=== PATIENT | female | born 1955 | race Caucasian/White ===

== ENCOUNTER 2017-04-06 13:52 | Inpatient (IN) | payer OTHER ==
[~2017-04-06] VITALS: Ht 175.3 cm; Wt 70.5 kg
[2017-04-06] VITALS (7 sets, daily range): BP systolic 92–112; BP diastolic 38–68; PULSE 81–104; RESP 12–18; O2SAT 95–100
[~2017-04-06 13:52] MED LIST: ADV250INH IH; ADV250INH INH; ALBU18HF IH; ALPRAZOLAM0.5 MG PO; AMIT150T PO; BUSP15 PO; HYDR1TAB69 PO; MONT4TAB9 PO; OMEP40CA25 PO; SIN10 PO; TRAM50TA2 PO
[2017-04-06] MEDS ORDERED: HYDROcodone-APAP 5-325 mg Tablet PO ONE (14:10)
--- NOTE | 2017-04-06 14:14 | ED.REPORT ---
HPI-Extremity Problem Lower Date of Service Apr 06, 2017 ED Provider: Rivera Cunningham PA-C Otherwise healthy 7-year-old female presents with chief complaint right knee pain. Patient reports the pain that began last night as she was trying to get out of bed and fell. She describes the fall as sitting on the edge of the bed, slipping off and landing on her right knee on a hardwood floor. Reports hyperextension of her right hip denies hip pain at this time. Knee pain, swelling and reduced range of motion. Denies numbness, tingling or pain in right foot. Patient has a recent history of back surgery performed February 08 involving placement of plates along her spine, continues to wear brace. Denies exacerbation of back pain, saddle anesthesia, bowel/bladder dysfunction. Nursing Notes Stated Complaint: RT KNEE PAIN Chief Complaint: Extremity Trauma Nursing Notes Reviewed: Yes Allergies: Coded Allergies: Sulfa (Sulfonamide Antibiotics) (Verified Allergy, Unknown, 04/06/17) Scheduled Amitriptyline (Amitriptyline) 50 Mg Tab 150 MG PO HS Buspirone (Buspirone) 10 Mg Tablet 10 MG PO HS Montelukast (Montelukast) 10 Mg Tablet 10 MG PO HS Scheduled PRN Alprazolam (Alprazolam) 0.5 Mg Tablet 1 MG PO QID PRN PRN For Anxiety Baclofen (Baclofen) 10 Mg Tablet 10 MG PO TID PRN PRN For Pain Furosemide (Furosemide) 20 Mg Tab 20 MG PO DAILY PRN PRN prn oxyCODONE-Acetaminophen 10-325 mg (oxyCODONE-Acetaminophen 10-325 mg) 1 Each Tablet 1 TAB PO q4 hours PRN PRN For Pain General Time Seen by MD: 13:57 Chief Complaint Knee injury right Past Medical History Past Medical History Chronic back pain Kidney stones Insomnia Scoliosis Osteoporosis Reports: Asthma, GERD Past Surgical History Back surgery Neck surgery Bladder surgery Smoking History Current Every Day Smoker Social History Alcohol Use: Denies alcohol use Drug Use: Denies drug use Other Social History: Good social support, Occupation Works as a [employer] Ambulatory Status Independent Review of Systems Review of Systems Note: Negative unless stated otherwise in history of present illness Physical Exam General: Well appearing, well developed, well nourished, no acute distress. Reclining on the gurney, wearing an external back brace. Right hip: Nontender Right knee: Diffusely swollen, no redness, bruising. Significantly reduced range of motion. Nontender to palpation along medial lateral joint line, patella, tibial tuberosity, popliteal fossa. Right foot/ankle: Normal to inspection, nontender. DP and PT pulses are not appreciated bilaterally by palpation but confirmed with ultrasound. Head: Atraumatic, normocephalic. Eyes: No scleral icterus or injection. No discharge. Vision grossly intact. ENT: Voice clear, hearing grossly intact. Respiratory: No respiratory distress, no increased work of breathing. Speaks in complete sentences. Skin: Warm and dry. Neurological: Grossly nonfocal. Psychological: alert and oriented. Speech appropriate, linear and logical. Behavior appropriate. Initial Vital Signs Vital Signs (First) Date Time Temp Pulse Resp B/P Pulse Ox O2 Delivery O2 Flow Rate FiO2 04/06/17 14:01 36.5 95 16 92/50 95 Room Air Interpretation & Diagnostics Interpretation & Diagnostics: PROCEDURE: CT KNEE RIGHT W/O CONTRAST ([id number]) INDICATIONS: distal femur fracture on x-ray IMPRESSION: 1. Communited, mildly displaced distal femur fracture with extension into the condyles and intracondylar notch. 2. Prominent effusion and soft tissue edema. Lab Results Interpretation Result Diagram: 04/06/17192704/06/171927 X-Ray Interpretation Xray Interpretation: PROCEDURE: X-RAY RIGHT KNEE, THREE VIEWS ([id number]) INDICATIONS: right knee pain IMPRESSION: Mildly displaced distal femur fracture, extending into the medial condyle. Mild cortical irregularity along the lateral condyle. Fracture canot be excluded. CT knee is recommended for further evaluation. Interpretation / Wet Read by: Interpret - Radiologist, Interp - P Re-Eval/Medical Decision Med Decision/Clinical Course 7-year-old female who recently underwent back surgery presents emergency department for right knee pain began when she fell from her bed onto a hardwood floor. Because of pain, swelling, reduced range of motion. Physical examination reveals notable swelling in the right knee compared to the left, effusion, reduced range of motion. Knee is nontender, without bruising, redness or heat. Hip and ankle are normal-appearing and nontender. DP and PT pulses cannot be appreciated by palpation or compression with Doppler. Treatment is initiated with Wirtz 2, x-ray is performed which indicates a distal femur fracture, radiologist recommended CT which is performed. Discussed the case with Dr. Granda, who requests admission to hospitalist service , long knee immobilizer brace, nothing by mouth after midnight plan for surgery tomorrow. Discussed the case with hospitalist who accepts admission. Patient is transferred to floor in stable condition. Consultation #1: Referral / Consult Name: Jose Granda DO Call Returned at: 17:07 Note: Requests admit, plan for surgery tomorrow a.m. Nothing by mouth after midnight, long knee immobilizer. Consultation #2: Referral / Consult Name: Bob Castanon MD Call Returned at: 17:24 Distillery Manager: Will see patient Discharge & Departure Impression: Primary Impression: Right femoral fracture Encounter type: initial encounter Femur location: distal Fracture type: closed Fracture morphology: unspecified fracture morphology Qualified Code: S72.401A - Unspecified fracture of lower end of right femur, initial encounter for closed fracture Disposition: ADMITTED TO HOSPITAL Referrals: Edgardo Peña (PCP) EDSupervising Provider for APC: Cam Hinkle MD, Seth PA-C Apr 06, 2017 14:14
--- NOTE | 2017-04-06 15:06 | DRSVH ---
PROCEDURE: X-RAY RIGHT KNEE, THREE VIEWS ([id number]) INDICATIONS: right knee pain TECHNIQUE: 3 views of the knee were acquired. COMPARISON: [facility], , KNEE 3VW (RT), 04/18/2013, 11:55. FINDINGS: Bones: There is a mildly displaced distal femur fracture, extending into the medial condyle. There is irregularity along the lateral condyle cortex. Soft tissues: Moderate joint effusion. No suspicious soft tissue calcifications. IMPRESSION: Mildly displaced distal femur fracture, extending into the medial condyle. Mild cortica l irregularity along the lateral condyle. Fracture canot be excluded. CT knee is recommended for fu rther evaluation. Dictated by: Opal Rodgers M.D. on 04/06/2017 at 13:47 Approved by: Opal Rodgers M.D. on 04/06/2017 at 14:05
--- NOTE | 2017-04-06 16:36 | DRSVH ---
PROCEDURE: CT KNEE RIGHT W/O CONTRAST ([id number]) INDICATIONS: distal femur fracture on x-ray TECHNIQUE: Noncontrast 1-1.5 mm axial sections acquired from the mid-patella to the proximal tibia, with coronal and sagittal reformats. COMPARISON: [facility], CT, KNEE RT W/O CONTRAST, 04/18/2013, 13:13. [facility], CR, XR KNEE 3VW RT, 04/06/2017, 14:18. FINDINGS: Image quality: Excellent. Bones: Comminuted, mildly displaced, distal femur fracture with extension into the medial and latera l condyles. Fracture lucency extends into the intracondylar notch. Tibial plateau appears intact. Soft tissues: Prominent effusion is present with soft tissue edema. IMPRESSION: 1. Communited, mildly displaced distal femur fracture with extension into the condyles and intracondy lar notch. 2. Prominent effusion and soft tissue edema. Dictated by: Opal Rodgers M.D. on 04/06/2017 at 15:26 Approved by: Opal Rodgers M.D. on 04/06/2017 at 15:35
[2017-04-06] MEDS ORDERED: Ondansetron 2 mg/mL 2 mL Inj IVPUSH PRN (17:50)
[2017-04-06] MEDS ORDERED: Polyethylene Glycol (PEG) 17 Gm Powder PO PRN (17:50)
[2017-04-06] MEDS ORDERED: Alum-Mag Hydrox-Simeth 30 mL Suspension PO PRN (17:50)
--- NOTE | 2017-04-06 17:57 | PCM.HPMED ---
Subjective Date of Service Apr 06, 2017 Primary Provider: Admitting Physician: Primary Care Physician: Soto Lemus DO Attending Physician: Admit Status: From the Emergency Department, Full Admit, Admit to Red Team Chief Complaint: fell from bed/20hrs Right knee pain and swelling/20hrs History of Present Illness: 61 -year-old lady with past medical history of COPD, depression/anxiety, recent extensive back surgery for scoliosis on February 08 and February [facility] presented with fall from bed and right knee pain and swelling of 20 hours. She she states she woke up to go to bathroom and fell from bed. She describes fall as mechanical due to combination of spine brace she is wearing after surgery, new Tempur-Pedic bed and new slippery bed sheets. She landed on her right knee. She has significant swelling and pain on right knee. No trauma to other sites except mild bruise right wrist She has history of COPD. She used to be on Advair but few years she had PFT and was told that she has only mild COPD and dyspnea is mainly due to postmenopausal anxiety and stopped using Advair. Continues to use Singulair. No recent exacerbation Denies chest pain. Denies dyspnea. Denies fever ED course: CT knee showed Communited, mildly displaced distal femur fracture with extension into the condyles and intracondylar notch Dr Granda from orthopedics consulted by ED, plans to take her to OR tomorrow Review of Systems: a comprehensive review of systems performed, pertinent positives and negatives included in history of present illness Allergies Coded Allergies: Sulfa (Sulfonamide Antibiotics) (Verified Allergy, Unknown, 10/04/14) Home Medications Alprazolam-Expunged Drug, Do Not Renew! (Alprazolam-Expunged Drug, Do Not Renew! ) 0.5 Mg Tablet 0.5 MG PO TIDP For anxiety Amitriptyline-Expunged Drug, Do Not Renew! (Amitriptyline-Expunged Drug, Do Not Renew!) 150 Mg Tablet 100 MG PO HS Buspirone-Expunged Drug, Do Not Renew! (Buspirone-Expunged Drug, Do Not Renew!) 15 Mg Tablet 10 MG PO BID Montelukast Chew (Singulair Chew) 4 Mg Tab.chew 0 PO HS Montelukast-Expunged Drug, Do Not Renew! (Singulair-Expunged Drug, Do Not Renew! ) 10 Mg Tablet 10 MG PO DAILY PMH Chronic back pain due to scoliosis. Kidney stones Insomnia Scoliosis Osteoporosis Reports: Asthma, GERD Surgical History Recent extensive spine surgery reportedly cervical to sacral Back surgery Neck surgery Bladder surgery Family History Reviewed and unremarkable. Social History Hx Alcohol Use: No Hx Substance Use: No Hx Tobacco Use: Yes Smoking Status: Current Every Day Smoker Exam Vital Signs Vital Sign - Last Date Time Temp Pulse Resp B/P Pulse Ox O2 Delivery O2 Flow Rate FiO2 04/06/17 16:56 81 12 97/38 100 Room Air 04/06/17 14:01 36.5 Exam Gen. patient is lying comfortably in hospital bed HEENT: Head is normocephalic atraumatic, Pupils equal and reactive, extraocular movements intact, Lungs clear to auscultation bilaterally Heart regular rate and rhythm without murmurs gallops or rubs Abdomen soft nontender without hepatosplenomegaly Extremities pulses are present dorsalis pedis posterior tibialis and radial. tSkin is warm and dry there are no rashes, Psych alert and oriented to person place and time Neuro cranial nerves II through XII are grossly intact Lymph: There is no lymphadenopathy appreciated in the cervical supra infraclavicular regions : no cordero Lab and Diagnostics X-Rays, CTs and MRIs PROCEDURE: CT KNEE RIGHT W/O CONTRAST ([id number]) INDICATIONS: distal femur fracture on x-ray TECHNIQUE: Noncontrast 1-1.5 mm axial sections acquired from the mid-patella to the proximal tibia, with coronal and sagittal reformats. COMPARISON: [facility], CT, KNEE RT W/O CONTRAST, 04/18/2013, 13: 13. [facility], CR, XR KNEE 3VW RT, 04/06/2017, 14:18. FINDINGS: Image quality: Excellent. Bones: Comminuted, mildly displaced, distal femur fracture with extension into the medial and lateral condyles. Fracture lucency extends into the intracondylar notch. Tibial plateau appears intact. Soft tissues: Prominent effusion is present with soft tissue edema. IMPRESSION: 1. Communited, mildly displaced distal femur fracture with extension into the condyles and intracondylar notch. 2. Prominent effusion and soft tissue edema. Dictated by: Opal Rodgers M.D. on 04/06/2017 at 15:26 Assessment & Plan 61 -year-old lady with past medical history of COPD, depression/anxiety, recent extensive back surgery for scoliosis on February 08 and February 17 at [facility] presented with fall from bed and right knee pain and swelling of 20 hours. # Right distal femoral fracture, acute,poa -Pain control with morphine -Orthopedics consulted by ED -cxr and ekg requested -CBC CMP requested -npo pmn # Recent extensive back surgery for scoliosis -keep spine brace -Pain control as above - to notify orthopedic surgeon in [place],patient was supposed to see him today # History of COPD -No more on Advair -duoneb prn #Anxiety/depression -Continue home medication full code Patient admitted under inpatient status with expected length of stay > 2 midnights for severity of present symptoms, complexities of treatment plan and risk for adverse events copies to: Soto Lemus Melaku MD Apr 06, 2017 17:57
--- NOTE | 2017-04-06 18:52 | DRSVH ---
PROCEDURE: X-RAY CHEST ONE VIEW, PORTABLE ([id number]) INDICATIONS: preop TECHNIQUE: One view of the chest was acquired. COMPARISON: None. FINDINGS: Surgical changes and devices: Previous extensive surgery in the lower thoracic and upper lumbar spine . Previous surgery for anterior approach in the lower cervical spine. Lungs and pleura: No pleural effusions or pneumothorax. Lungs are clear of acute disease. However t here is some ill-defined density in the apex of the heart and left costophrenic sulcus is a new findi ng since the most recent previous films of 2013. There is irregularity of ribs in the area consistent with old rib fracture.. Mediastinum: Mediastinal contours appear normal. Heart size is normal. Bones and chest wall: No suspicious bony lesions. Overlying soft tissues appear unremarkable. IMPRESSION: Acute disease is not thought to be present. There is abnormal somewhat nodular pleural-ba sed density at the left costophrenic sulcus of unknown significance. This is new since the 2013. Inte rvening but older chest films would be useful. Followup is suggested. Dictated by: Arash Pinto M.D. on 04/06/2017 at 18:48 Approved by: Arash Pinto M.D. on 04/06/2017 at 18:51
[2017-04-06 19:34] LABS: MONOCYTES % (AUTO) 7.6 % (4-12)
[2017-04-06 19:36] LABS: BASOPHILS % (AUTO) 0.3 % (0-3); EOSINOPHILS % (AUTO) 2.3 % (0-5); Mean Corpuscular Hemoglobin 26.9 pg (27.0-35.0); Mean Corpuscular Volume 87.3 fL (81-100); NEUTROPHILS % (AUTO) 77.4 % (40-74); Platelet Count 307 bil/L (150-400)
[2017-04-06] MEDS ORDERED: BACL10TA PO (19:49)
[2017-04-06] MEDS ORDERED: BUSP10TA2 PO (19:49)
[2017-04-06] MEDS ORDERED: OXYC-466 PO (19:49)
[2017-04-06] MEDS ORDERED: MONT10TA23 PO (19:49)
[2017-04-06] MEDS ORDERED: AMT50T PO (19:49)
[2017-04-06] MEDS ORDERED: FUR20 PO (19:49)
[2017-04-06] MEDS ORDERED: ALPR0.5T8 PO (19:49)
[2017-04-06 19:52] LABS: INR 0.9 ratio
[2017-04-06 19:56] LABS: Magnesium 2.2 mg/dL (1.6-2.6)
--- NOTE | 2017-04-06 20:08 | CONS ---
[address] [address] CONSULTATION REPORT PATIENT: GURWINDER JEAN-BAPTISTE : 1955 MR#: [id number] ADMIT: 04/06/2017 JOB ID: [id number] DATE OF SERVICE: 04/06/2017 CHIEF COMPLAINT: Right thigh pain. HISTORY OF PRESENT ILLNESS: The patient is a 61-year-old female who has been recovering from spine surgery and fell out of her bed early this morning when trying to get up to use the restroom, sustaining a hyperflexion- type injury to her right femur. She was unable to ambulate after the injury and tried to ice this at home but had worsening pain and swelling and was brought into the emergency department by ambulance. She has had severe acute pain in the right knee and pain with any attempt at range of motion. She had spine surgery in [place] which was a staged type procedure beginning on February 08, and then had a second procedure and was doing well from the surgeries, although she states that she does have some diminished sensation to her left knee postop but otherwise has been progressing quite well and has had no problems with her wounds. She has been using a brace for support when ambulating but has not been using a walker or cane. PAST MEDICAL HISTORY: Significant for none stated other than nicotine use and osteoporosis. PAST SURGICAL HISTORY: Includes back surgery, 2009, with Dr. Rodriguez, and then 2010 breast augmentation, bladder surgery in the , and then the recent back surgery. ALLERGIES: PENICILLIN. REVIEW OF SYSTEMS: The patient denies any chest pain, shortness of breath, nausea, vomiting, problems with liver, lung, kidneys. Is positive as above. Denies fevers, chills or other constitutional symptoms. PHYSICAL EXAMINATION: Vital signs: Blood pressure 97/38, pulse rate 81, respirations 12, temperature 36.5. She is alert and cooperative in no acute distress. Her right knee has pain and swelling and pain with any attempt at range of motion. Large effusion present. Her skin overlying the knee is intact. Her right bilateral lower extremities have some mild edema present. She is able to move her toes. Her foot is warm, pink, and well perfused with dorsalis pedis pulse +2. X-rays demonstrate a right distal femur fracture with intercondylar split and significant osteoporosis. ASSESSMENT: Right distal femur fracture with intercondylar extension. PLAN: We discussed treatment options for this and I recommend open reduction and internal fixation for her fracture. Will plan for surgery tomorrow. We discussed the risks, benefits, and possible complications of surgery. All questions were answered. We also discussed nonoperative treatment, although I would not recommend this due to the risk of malunion, nonunion, and worsening arthritis. The patient had good understanding. We will plan for surgery tomorrow. Plan to keep her n.p.o. after midnight and recommend Omalley catheter placement and a knee immobilizer.
[2017-04-06] MEDS: 0.9% Sodium Chloride 1,000 ML IV SCH (23:27)
[2017-04-07] VITALS (13 sets, daily range): BP systolic 103–124; BP diastolic 50–73; PULSE 85–116; RESP 14–19; O2SAT 92–100
[2017-04-07] MEDS ORDERED: HYDROmorphone 0.5 mg/0.5 mL iSecure Syringe IVPUSH ONE (01:30)
[2017-04-07 03:45] LABS: APPEARANCE,URINE CLEAR (CLEAR,HAZY); COLOR,URINE YELLOW (YELLOW); OCCULT BLOOD,URINE SMALL (NEGATIVE); UROBILINOGEN,URINE NORMAL (NORMAL)
--- NOTE | 2017-04-07 05:41 | NUR ---
Admit Pt arrived to unit from ED at 2004 via stretcher. Took three staff to transfer pt to bed. Alert, oriented and able to make needs known. Denies nausea, vomiting and no acute resp distress and/or SOB noted or reported. Omalley catheter inserted per MD's order and pt tolerating it well. Omalley catheter is patent and draining yellow urine. c/o RLE pain and morphine 2mg IV administered with some relief. two hours later c/o increased in pain. this health technical writer Gino funk MD for new order of breakthrough pain med and Dilaudid 0.5mg IV administered x1 with good relief and pt slept for few hours. Pt woke up with intolerable amount of pain and Morphine 4mg IV administered. Pt is resting comfortably in bed and call light w/in reach. Will continue to monitor.
[2017-04-07] MEDS: 0.9% Sodium Chloride 1,000 ML IV SCH ×2 (07:10→16:50)
[2017-04-07 09:47] LABS: Mean Corpuscular Hemoglobin 27.2 pg (27.0-35.0); Mean Corpuscular Volume 87.8 fL (81-100)
[2017-04-07] MEDS ORDERED: CeFAZolin 2 Gm/50 mL D5W Duplex Bag IV ONE (10:40)
--- NOTE | 2017-04-07 10:45 | NUR ---
ORTHO/PROVIDER NOTIFICATION Patient stated that she feels that her leg is numb. + pulse. Patient is able to feel her foot when this song writer was touching it. No excruciating pain noted. HX: Recent back surgery. Susana Blandon, PAC made aware. Will continue to monitor. Patient is scheduled for surgery this afternoon.
--- NOTE | 2017-04-07 11:24 | PCM.PNMED ---
Subjective Date of Service Apr 07, 2017 Subjective pt was bit anxious and talked about the episode in details. still in pain, increased morphine to q2h awaiting surgery per today Exam Vital Signs Vital Sign - Last Date Time Temp Pulse Resp B/P Pulse Ox O2 Delivery O2 Flow Rate FiO2 04/07/17 05:44 37.1 116 18 124/69 96 Room Air Intake and Output 04/06/17 04/06/17 04/07/17 Cumulative From/Thru 15:00 23:00 07:00 04/06/17 14:01 - 04/07/17 05:44 Intake Total 400 ml 400 ml Output Total 3000 ml 3000 ml Balance -2600 ml -2600 ml Intake Oral 400 ml 400 ml Output Urine Total 3000 ml 3000 ml # Bowel Movements 0 0 Exam Cachectic middle-aged female NAD, comfortably laying down on the bed no JVD, MMM, no LAD RRR, nl s1, s2 no mrg CTAB, no w,c S,ND,NT,normoactive BS+ Rt distal DP2+, warm, no edema IVs and Medications Medications Reviewed: Medications were reviewed in detail Lab and Diagnostics Result Diagram: 04/06/17192704/06/171927 X-Rays, CTs and MRIs PROCEDURE: CT KNEE RIGHT W/O CONTRAST ([id number]) INDICATIONS: distal femur fracture on x-ray TECHNIQUE: Noncontrast 1-1.5 mm axial sections acquired from the mid-patella to the proximal tibia, with coronal and sagittal reformats. COMPARISON: [facility], CT, KNEE RT W/O CONTRAST, 04/18/2013, 13: 13. [facility], CR, XR KNEE 3VW RT, 04/06/2017, 14:18. FINDINGS: Image quality: Excellent. Bones: Comminuted, mildly displaced, distal femur fracture with extension into the medial and lateral condyles. Fracture lucency extends into the intracondylar notch. Tibial plateau appears intact. Soft tissues: Prominent effusion is present with soft tissue edema. IMPRESSION: 1. Communited, mildly displaced distal femur fracture with extension into the condyles and intracondylar notch. 2. Prominent effusion and soft tissue edema. Dictated by: Opal Rodgers M.D. on 04/06/2017 at 15:26 Assessment & Plan 61 -year-old lady with past medical history of COPD, depression/anxiety, recent extensive back surgery for scoliosis on February 08 and February 17 at [facility] presented with fall from bed and right knee pain and swelling of 20 hours. acute, active # Right distal femoral fracture, acute,poa -Pain control with morphine, increased frequency today given uncontrolled pain -appreciate Orthopedics , plans for surgery today -pain control, dvt ppx per surgery team chronic, stable # Recent extensive back surgery for scoliosis -keep spine brace -Pain control as above - to notify orthopedic surgeon in [place],patient needs to reschedule appointment with neurosurgeon on d/c # History of COPD -No more on Advair -duoneb prn #Anxiety/depression -Continue home medication Full code dispo: depends on surgical course VTE Mechanical Devices: Intermittant Pneumatic CD Time spent 35min Willy Rolle MD Apr 07, 2017 08:41
[2017-04-07] MEDS ORDERED: fentaNYL-PF 50 mCg/mL 2 mL Inj ONE (11:45)
[2017-04-07] MEDS ORDERED: Propofol 10,000 mCg/mL 20 mL Inj ONE (11:45)
[2017-04-07] MEDS ORDERED: Rocuronium 10 mg/mL 5 mL Inj ONE (11:45)
[2017-04-07] MEDS ORDERED: HYDROmorphone 1 mg/mL Inj ONE (11:45)
[2017-04-07] MEDS: ALPRAZolam 0.5 mg Tablet PO PRN ×2 (12:25→22:37)
[2017-04-07] MEDS ORDERED: Tranexamic Acid Inj 1,000 MG in 0.9% Sodium Chloride 100 ML IV SCH (12:30)
[2017-04-07] MEDS ORDERED: Tranexamic Acid Inj 1,000 MG in 0.9% Sodium Chloride 100 ML IV ONE (12:30)
[2017-04-07] MEDS ORDERED: CeFAZolin Inj 2 GM in IV Premix 1 EACH IV ONE (12:30)
[2017-04-07] MEDS ORDERED: Lactated Ringer's 1,000 ML IV ONE ×2 (12:38→13:25)
--- NOTE | 2017-04-07 12:39 | PCM.HPANE ---
Patient Data Surgeon Admitting Provider:Bob Castanon MD Attending Provider:Willy Rolle MD Primary Care Physician:Soto Lemus DO Other Provider: Reason for Visit Right Distal Femur Fracture RIGHT DISTAL FEMUR FRACTURE Ht/WT & BMI Height (Feet): 5 Height (Inches): 9.00 Weight (Kilograms): 74.200 Body Mass Index 24.23 Allergies Coded Allergies: Sulfa (Sulfonamide Antibiotics) (Verified Allergy, Unknown, 04/06/17) Past Anesthesia History Anesthesia History: Denies:: Abnormal Airway, Anesthesia Reactions, Difficult Intubation, Fam Anesthesia Reaction, Fam Malignant Hypertherm, Malignant Hyperthermia Diabetes History Hx Diabetes?: No MRSA MRSA: No Medications Reported Medications Montelukast 10 Mg [id number] Mg PO HS #30 04/06/17 Buspirone 10 Mg Oxetzb76 Mg PO HS #60 04/06/17 Baclofen 10 Mg Qcqsxx04 Mg PO TID PRN For Pain #90 04/06/17 Amitriptyline 50 Mg Yxu778 Mg PO HS #90 04/06/17 oxyCODONE-Acetaminophen 10-325 mg 1 Each Tablet1 Tab PO q4 hours PRN For Pain # 90 04/06/17 Furosemide 20 Mg Tab20 Mg PO DAILY PRN prn #30 04/06/17 Alprazolam 0.5 Mg Tablet1 Mg PO QID PRN For Anxiety #56 04/06/17 Discontinued Reported Medications Tramadol 50 Mg Jgchhk96 Mg PO 000 PRN For Pain Ref 0 10/04/14 Montelukast Chew (Singulair Chew)4 Mg Tab.chew PO HS 30 Days Ref 0 10/04/14 Flutic/Salmet-Expunged Drug, Do Not Renew! (Advair 250/50-Expunged Drug, Do Not Renew!)60 Puff Disk1 Puff INH BID #1 DISK 04/28/13 Hydrocod/APAP-Expunged, Do Not Renew! (VICODIN-Expunged Drug, Do Not Renew)1 Tab Tab1 Tab PO 04/28/13 Omeprazole-Expunged Drug, Do Not Renew! 40 Mg Capsule.dr40 Mg PO AC 02/07/13 Alprazolam-Expunged Drug, Do Not Renew! 0.5 Mg Tablet0.5 Mg PO TIDP For anxiety 02/07/13 Montelukast-Expunged Drug, Do Not Renew! (Singulair-Expunged Drug, Do Not Renew! )10 Mg Ljljiy77 Mg PO DAILY 04/10/12 Buspirone-Expunged Drug, Do Not Renew! 15 Mg Qezoag00 Mg PO BID 04/10/12 Amitriptyline-Expunged Drug, Do Not Renew! 150 Mg Qqwopx807 Mg PO HS 03/15/11 Flutic/Salmet-Expunged Drug, Do Not Renew! (Advair 500/50-Expunged Drug, Do Not Renew!)60 Puff Disk1 Puff IH BID 03/15/11 Albuterol-Expunged Drug, Do Not Renew! 200 Puff/18 Gm Hfa.aer.ad2 Puff IH Q3 03/15/11 History History of ENT Problems?: No HEENT History: Denies:: Cataracts Dysphagia Glaucoma Sinus Problem Denture Type: None Teeth Condition: Within Normal Limits Tooth Decay Hx of Heart Problems?: No Cardiovascular History: Positive for:: Edema (a trace of edema on RLE) Denies:: Cardiac Surgery Chest Pain Congestive Heart Failure Hypertension Hx of Respiratory Problem?: Yes Respiratory History: Positive for:: Asthma COPD Cough (RECENT RIB FX) Denies:: Dyspnea Tuberculosis Hx Neurologic Problems?: Yes Neurological History: Positive for:: Headaches Hx of GI Problems?: Yes Hx of Problems?: Yes Female Hx: Positive for:: Problems with Breasts? (S/P BILAT BREAST AUGMENTATION) Denies:: Currently Skin History: Denies:: History Skin Disorders? Pressure Ulcers Hx Musculoskeletal Problems?: Yes Musculoskeletal History: Positive for:: Back Injury (Cyst in lower back, removed 2009) Musculoskeletal Trauma (RECENT RIB FX S/P FOOT RPR X2) Hx of Psycho/Social Problems?: Yes Psycho Social History: Positive for:: Anxiety (?R/T BACK/NECK PAIN) Hx Depression Hx Surgeries?: Yes (BILAT BREAST AUGMENTATION,L5-S1 LAMI W/ CYST EXC.,FOOR RPR X2,CYSTO) Hx Any Other Health Problems?: Yes Other History: Positive for:: Hospitalization Denies:: Cancer Endocrine Disease Thyroid Disease History Blood Transfusions: Positive for:: Accept Blood Products? Denies:: Blood Transfuse Reaction Blood Transfusions Hx Diabetes: No Hx Alcohol Use: NoHx Substance Use: No Smoking Status: Current Every Day Smoker Have You Smoked inLast 12 mo: YesApprox How Many Cigarettes/day: used to smoke a pack a day Stop/Bang Treated for Sleep Apnea?: No S-Snoring: Do You Snore Loudly: No G- Gender Male: No Risk Assessment Category Category 1A: Patient has history of documented sleep apnea, and HAS NOT received any narcotic, sedative or anesthesia administration during this stay. Category 1B: Patient has history of documented sleep apnea, and HAS received any narcotic , sedative or anesthesia administration during this stay Category 2: Patient has SUSPECTED Obstructive Sleep Apnea, and HAS received any narcotic , sedative or anesthesia administration during this stay. Category 3: Patient has SUSPECTED Obstructive Sleep Apnea and HAS NOT received narcotic, sedative or anesthesia administration during this stay. Category 4: Outpatient in Procedural Areas with known sleep apnea or who screen positive for High Risk via the STOP/BANG questionnaire. Exam Exam Vital Signs Vital Signs Date Time Temp Pulse Resp B/P Pulse Ox O2 Delivery O2 Flow Rate FiO2 04/07/17 09:22 106 04/07/17 08:14 37.0 106 16 108/68 98 Room Air 04/07/17 05:44 37.1 116 18 124/69 96 Room Air General Appearance: Alert, Oriented X3, Cooperative, Severe Distress HEENT/AIRWAY: MP 2, Neck Movement (from), Mouth Opening (wnl - poor dentition) Lungs: Clear to Auscultation Heart: Exam Unremarkable Additional Information smells of cigarettes Meds/Labs/Diagnostics Admission Meds Current Medications Acetaminophen/ Hydrocodone Bitart 2 tablet 2 tablet ONCE ONCE PO Last administered on 04/06/17 14:32; Start 04/06/17 at 14:10; Stop 04/06/17 at 14:11; Status DC Sodium Chloride (Normal Saline) 1,000 ml @ 75 mls/hr [id number] IV Last administered on 04/06/17 23:27; Start 04/06/17 at 17:50 Nicotine (Nicoderm 14 mg/ 24 Hr Patch) 1 patch DAILY TOPICAL Last administered on 04/07/17 02:06; Start 04/07/17 at 01:30 Hydromorphone HCl (Dilaudid Inj) 0.5 mg ONCE ONCE IVPUSH Last administered on 04/07/17 02:07; Start 04/07/17 at 01:30; Stop 04/07/17 at 01:33; Status DC Labs Test 04/06/17 19:28 04/07/17 03:25 04/07/17 09:32 Neutrophils (%) (Auto) 77.4% (40-74) Lymphocytes (%) (Auto) 12.1% (14-46) Monocytes (%) (Auto) 7.6% (4-12) Eosinophils (%) (Auto) 2.3% (0-5) Basophils (%) (Auto) 0.3% (0-3) Prothrombin Time 9.6sec (8.1-12.5) Prothromb Time International Ratio 0.90ratio Sodium Level 134mEq/L (134-144) Potassium Level 4.2mEq/L (3.5-5.2) Chloride Level 98mEq/L (97-108) Carbon Dioxide Level 22mmol/L (18-29) Blood Urea Nitrogen 22mg/dL (8-27) Creatinine 0.43mg/dL (0.57-1.00) Estimat Glomerular Filtration Rate 215mL/min (>59) Glucose Level 93mg/dL (60-99) Calcium Level 9.2mg/dL (8.5-10.1) Magnesium Level 2.2mg/dL (1.6-2.6) Total Bilirubin 0.2mg/dL (0.0-1.2) Aspartate Amino Transf (AST/SGOT) 18U/L (0-50) Alanine Aminotransferase (ALT/SGPT) 11U/L (0-32) Alkaline Phosphatase 136U/L (25-165) Total Protein 7.2g/dL (6.4-8.4) Albumin 3.8g/dL (3.4-5.0) Hold Moreno Top Tube Received (Received) Urine Color Yellow (YELLOW) Urine Appearance Clear (CLEAR,HAZY) Urine pH 6.0 (5.0-8.0) Urine Specific Benavides 1.025 (1.003-1.035) Urine Protein Negativemg/dL (NEG,TRACE) Urine Glucose (UA) Negativemg/dL (NEGATIVE) Urine Ketones Negativemg/dL (NEGATIVE) Urine Occult Blood Small (NEGATIVE) Urine Nitrite Negative (NEGATIVE) Urine Bilirubin Negative (NEGATIVE) Urine Urobilinogen Normalmg/dL (NORMAL) Urine Leukocyte Esterase Negative (NEGATIVE) Urine RBC 0-2/hpf (0-2) Urine WBC 6-10/hpf (0-5) Urine Epithelial Cells Occasional/hpf (NONE-MOD) Urine Crystals None seen (NONE SEEN) Urine Bacteria Few/hpf (NONE-FEW) Urine Hyaline Casts None/lpf (NONE) Urine Granular Casts None seen (NONE SEEN) Urine Waxy Casts None seen (NONE SEEN) Urine Red Blood Cell Casts None seen (NONE SEEN) Urine White Blood Cell Casts None seen (NONE SEEN) Urine Mucus None seen (None Seen) Urine Trichomonas None seen (NONE SEEN) Urine Yeast None (NONE SEEN) Urinalysis Comment None Urine Culture Reflexed Indicated White Blood Count 11.0th/mm3 (3.8-10.1) Red Blood Count 2.87mil/mm3 (3.90-5.20) Hemoglobin 7.8g/dL (12.0-15.6) Hematocrit 25.2% (35.0-46.0) Mean Corpuscular Volume 87.8fL (81-100) Mean Corpuscular Hemoglobin 27.2pg (27.0-35.0) Mean Corpuscular Hemoglobin Concent 31.0% (32.0-37.0) Red Cell Distribution Width 14.3% (12.3-15.4) Platelet Count 404bil/L (150-400) Plan Impression Patient chart reviewed, patient interviewed and anesthestic plan with risks, benefits, and alternatives discussed, and informed consent obtained. ASA Physical Status: ASA2 Mod Systemic Disease Anesthetic Plan: GA Bene/Risks/Altern/Consents: Yes HP Complete Prior to Induction: Yes Other underwent two stage back surgery 2 months ago at [facility] which inlcluded defating a lung to achieve access to thoracic spine. Charlie Santamaria MD Apr 07, 2017 12:39
--- NOTE | 2017-04-07 12:56 | NUR ---
TO OR Patient is saline locked. Consent form has been signed. Patient transported to the OR via a hospital bed. Her is aware. Report given to MANJIT Tay.
--- NOTE | 2017-04-07 13:12 | NUR ---
off the floor to OR Addendum: 04/07/17 at 1312 by KAMRAN ELMORE CNA Amended: Links added.
[2017-04-07] MEDS ORDERED: Lactated Ringer's 500 ML IV PRN (13:23)
[2017-04-07] MEDS ORDERED: Lactated Ringer's 1,000 ML IV SCH (13:23)
[2017-04-07] MEDS ORDERED: Phenylephrine 10,000 mCg/mL Inj IVPUSH PRN (13:25)
[2017-04-07] MEDS ORDERED: Atropine 0.4 mg/mL Inj IVPUSH PRN (13:25)
[2017-04-07] MEDS ORDERED: Ondansetron 2 mg/mL 2 mL Inj IVPUSH PRN ×2 (13:25→16:00)
[2017-04-07] MEDS ORDERED: Dexamethasone 4 mg/mL Inj IVPUSH PRN (13:25)
[2017-04-07] MEDS ORDERED: Albuterol-Ipratropium 3 mL Inhalation Solution NEB PRN (13:25)
[2017-04-07] MEDS ORDERED: hydrALAZINE 20 mg/mL Inj IVPUSH PRN (13:25)
[2017-04-07] MEDS ORDERED: EPHEDrine Sulfate 50 mg/mL Inj IVPUSH PRN (13:25)
[2017-04-07] MEDS ORDERED: Labetalol 5 mg/mL 4 mL Inj IV PRN (13:25)
[2017-04-07] MEDS ORDERED: HYDROmorphone 1 mg/mL Inj IVPUSH PRN (13:25)
--- NOTE | 2017-04-07 14:59 | NUR ---
Social Work- Brief Note/Multidisciplinary Rounds Data: EMR reviewed. Pt is a 61 year old female admitted for right distal femur fracture per H&P. Pt's insurance is [employer] of [facility] and PCP is Soto Lemus DO. Pt discussed in multidisciplinary rounds, pt will go to OR today. SW attempted to see pt today to complete assessment but pt was already in the OR at that time. Per chart review, pt has history of depression/anxiety, recent extensive back surgery for scoliosis in January at [facility], and presented with fall from bed and right knee pain and swelling. PT will evaluate pt pending surgery. Pt has no DPOA on file, SW to follow up regarding this. No SW orders have been placed at this time. SW will follow for SNF needs at discharge pending MD order and PT evaluation. Assessment: Pt who is independent at baseline but recently had back surgery Plan: Evolving. Pt recently had back surgery and may require SNF at d/c. SW will continue to follow. JOVITA Cabrera
[2017-04-07] MEDS ORDERED: Ropivacaine-PF 0.5% 30 mL Inj INFILTRATE ONE (15:21)
[2017-04-07] MEDS: fentaNYL-PF 50 mCg/mL 2 mL Inj IVPUSH PRN ×2 (15:51→16:05)
[2017-04-07] MEDS ORDERED: diphenhydrAMINE 25 mg Capsule PO PRN (16:00)
[2017-04-07] MEDS: Sodium Chloride LOK Flush 10 mL Syringe IV SCH (16:50)
--- NOTE | 2017-04-07 16:51 | NUR ---
POST-OP Patient received from PACU via a hospital bed. On O2 at 2 LPM via NC. Placed on a continuous PO2. IVF restarted. Via FELDT scale patients pain level is 2/10. Denies nausea/SOB. Orthos WNL. Dressing on her RLE is CDI. Brace is in place. IFC intact and draining to yellow colored UO. Oriented to room and call light.
--- NOTE | 2017-04-07 17:30 | OP ---
[address] [address] OPERATIVE REPORT PATIENT: GURWINDER JEAN-BAPTISTE : 1955 MR#: [id number] ADMIT: 04/06/2017 JOB ID: [id number] DATE OF SURGERY: 04/07/2017 PREOPERATIVE DIAGNOSIS(ES): Right distal femur fracture. POSTOPERATIVE DIAGNOSIS(ES): Right distal femur fracture. PROCEDURE: Right distal femur open reduction and internal fixation. SURGEON: Jose Granda DO SUGAR BOILER: Bertha Wilkerson PA-C INDICATIONS: The patient is a 61-year-old female who slipped out of bed and fell, sustaining a comminuted intra-articular right distal femur fracture with intercondylar split. We discussed treatment options for this and I recommended open reduction and internal fixation with a plate. We discussed the risks, benefits, and possible complications of surgery. All questions were answered. She wished to proceed. A surgical nurse practitioner was required for the successful completion of this procedure. PROCEDURE IN DETAIL: The patient was brought to the operating room. She was given a preoperative antibiotic, 1 g TXA, and general anesthetic. The right lower extremity was sterilely prepped and draped. A tourniquet was used for hemostasis. I used a sterile tourniquet. An incision was made over the anterior 1/3 of the distal femur, curving along to the tibial tubercle. Dissection was carefully carried through the subcutaneous tissue. Electrocautery was used for hemostasis. The iliotibial band was incised in line with the skin incision and carefully reflected off of the underlying capsule. The joint capsule was then entered and the femur fracture was encountered, with a fracture hematoma. She was noted to have some arthritic changes in her knee and some comminution, but her distal femur fracture reduced quite nicely with traction and a bump under the knee. This was reduced by the assistant manager airside operations and then I placed an eight-hole Synthes distal femur locking plate and slid this up percutaneously along the femoral shaft, reduced the fracture distally, and secured it with a couple of pins. I checked the reduction and plate placement with image fluoroscopy and then placed a nonlocking screw through the center portion of the plate in order to secure it down to bone and then added a proximal nonlocking screw into the shaft. We then added multiple distal locking screws into the femur and multiple locking screws into the shaft in order to get secure fixation of this fracture. She was noted to have quite osteoporotic bone and therefore I elected to use multiple locking screws. The wound was then irrigated and closed with 0 Vicryl to repair the iliotibial band and 2-0 to close the subcu. The skin was closed with niko. Naropin was added as an adjunct local anesthetic. Sterile dressings were applied. The patient tolerated the procedure well. BLOOD LOSS: Was 100 mL POSTOPERATIVE PROTOCOL: Will have the patient remain nonweightbearing on the right lower extremity for a period of six weeks, and 12 weeks likely. Will use a hinged knee brace locked in full extension for the 1st six weeks, and assuming she shows some good signs of healing we can begin range of motion at that point. Will plan for Lovenox for DVT prophylaxis for 21 days postoperatively. She is at increased risk for blood clots as she is a smoker. Plan to use Percocet and Dilaudid for postop pain control.
[2017-04-07] MEDS: hydrOXYzine Pamoate 25 mg Capsule PO PRN (18:36)
[2017-04-07] MEDS: Senna-Docusate 8.6-50 mg Tablet PO SCH (21:04)
[2017-04-07] MEDS: HYDROmorphone 0.5 mg/0.5 mL iSecure Syringe IVPUSH PRN (21:05)
[2017-04-07] MEDS: BusPIRone 15 mg Dividose Tablet PO SCH (21:07)
[2017-04-07] MEDS: CeFAZolin Inj 2 GM in IV Premix 1 EACH IV SCH (21:08)
[2017-04-07] MEDS: oxyCODONE-Acetamin 5-325 mg Tablet PO PRN (22:37)
[2017-04-08] VITALS (9 sets, daily range): BP systolic 83–106; BP diastolic 51–65; PULSE 100–111; RESP 16–18; O2SAT 96–100
[2017-04-08] MEDS: Sodium Chloride LOK Flush 10 mL Syringe IV SCH ×3 (00:17→16:16)
[2017-04-08] MEDS: 0.9% Sodium Chloride 1,000 ML IV SCH ×3 (02:47→21:59)
--- NOTE | 2017-04-08 05:04 | NUR ---
Pain Pt is alert, oriented, mildly sedated and easily aroused. Denies N/V/D. No SOB. pain on RLE managed with toradol, percocet, Oxycodone and also Xanax administered x1 per pt's request. Slept in between pain meds administration. No restlessness noted. Refused to be reposition in bed. Immobilized brace on RLE in place. Denies numbness or tingling on RLE. Orth WNL. Pt is sleeping soundly at this current moment with 2l oxygen via nc at 97%. Continuous PO2 in place. Will continue to monitor.
[2017-04-08] MEDS: CeFAZolin Inj 2 GM in IV Premix 1 EACH IV SCH (05:24)
[2017-04-08] MEDS: oxyCODONE-Acetamin 5-325 mg Tablet PO PRN (06:01)
[2017-04-08] MEDS: hydrOXYzine Pamoate 25 mg Capsule PO PRN ×5 (06:26→21:42)
[2017-04-08 06:31] LABS: BASOPHILS % (AUTO) 0.2 % (0-3); EOSINOPHILS % (AUTO) 0.4 % (0-5); MONOCYTES % (AUTO) 11.9 % (4-12); Mean Corpuscular Hemoglobin 26.9 pg (27.0-35.0); Mean Corpuscular Volume 88.7 fL (81-100); Platelet Count 289 bil/L (150-400)
--- NOTE | 2017-04-08 06:39 | NUR ---
Repositioning Pt allowed NAC to repositioned her couple times this shift.
--- NOTE | 2017-04-08 07:43 | PCM.ANEP1 ---
Post Anesthesia PACU Phase 1 Assessment Vital Signs Vital Signs Date Time Temp Pulse Resp B/P Pulse Ox O2 Delivery O2 Flow Rate FiO2 04/08/17 05:19 36.6 100 18 106/65 100 Nasal Cannula 2.00 Anesthetic Administered: GA Level of Alertness: Awake, talking FARRELL's with Equal Strength: Yes Pain: Yes Pain Scale Score: 10 Nausea or Vomiting: No CV Function & Hydration Stable: Yes Airway Device: Oxygen Delivery: Room Air Lungs: Other PACU Phase 2 Assessment Complications: No Follow up Care: No Patient Instructions Provided: N/A Charlie Santamaria MD Apr 08, 2017 07:43
--- NOTE | 2017-04-08 08:09 | NUR ---
Critical Lab Received a call from lab regarding patient's hemoglobin level. Hemoglobin was 6.4 - Made hospitalist Dr. Aquilino venegas. Addendum: 04/08/17 at 0837 by KAROLINA CASH RN Holding lovenox this AM due to patient's critical lab. Also, talked with Randal from PT and pushing back physical therapy until patient's condition is more stable.
[2017-04-08] MEDS: Senna-Docusate 8.6-50 mg Tablet PO SCH ×3 (08:30→21:42)
--- NOTE | 2017-04-08 08:43 | PCM.PNORTH ---
Subjective Date of Service: Apr 08, 2017 Visit Information: Reason for Visit Right Distal Femur Fracture Surgery/Surgery Date right distal femur ORIF 04/07/2017 Post-Op Day # 2 Date of Admission: Apr 06, 2017 at 17:57 Hospital Day # Subjective Patient is seen sitting up in bed. She complains of incisional and fracture site pain. She states the brace feels a little uneven. Patient has critically low H&H today. 2 units of packed red blood cells have been ordered and have just arrived. Patient states she will need a handicapped parking placard. She did not get one following her spine surgery. She has a front wheeled walker from her spine surgery but will likely need a wheelchair with a right leg extension as well. Pain Management: PO, IV Push Objective Exam Objective Patient is seen sitting up in bed. She looks a little pale. Vital Signs and I/O Vital Sign - Last Date Time Temp Pulse Resp B/P Pulse Ox O2 Delivery O2 Flow Rate FiO2 04/08/17 07:43 Room Air 04/08/17 05:19 36.6 100 18 106/65 100 2.00 Intake and Output 04/07/17 04/07/17 04/08/17 Cumulative From/Thru 15:00 23:00 07:00 04/06/17 14:01 - 04/08/17 06:37 Intake Total 660 ml 650 ml 1555 ml 3265 ml Output Total 1000 ml 450 ml 550 ml 5000 ml Balance -340 ml 200 ml 1005 ml -1735 ml Intake Oral 600 ml 400 ml 1400 ml IV Total 660 ml 50 ml 1155 ml 1865 ml Output Urine Total 1000 ml 350 ml 550 ml 4900 ml Estimated Blood Loss 100 ml 100 ml # Bowel Movements 0 0 0 Lab & Micro Results Laboratory Tests Test 04/07/17 09:32 04/08/17 05:55 White Blood Count 11.0th/mm3 (3.8-10.1) 11.4th/mm3 (3.8-10.1) Red Blood Count 2.87mil/mm3 (3.90-5.20) 2.38mil/mm3 (3.90-5.20) Hemoglobin 7.8g/dL (12.0-15.6) 6.4g/dL (12.0-15.6) Hematocrit 25.2% (35.0-46.0) 21.1% (35.0-46.0) Mean Corpuscular Volume 87.8fL (81-100) 88.7fL (81-100) Mean Corpuscular Hemoglobin 27.2pg (27.0-35.0) 26.9pg (27.0-35.0) Mean Corpuscular Hemoglobin Concent 31.0% (32.0-37.0) 30.3% (32.0-37.0) Red Cell Distribution Width 14.3% (12.3-15.4) 14.5% (12.3-15.4) Platelet Count 404bil/L (150-400) 289bil/L (150-400) Neutrophils (%) (Auto) 75.0% (40-74) Lymphocytes (%) (Auto) 12.3% (14-46) Monocytes (%) (Auto) 11.9% (4-12) Eosinophils (%) (Auto) 0.4% (0-5) Basophils (%) (Auto) 0.2% (0-3) Sodium Level 138mEq/L (134-144) Potassium Level 4.0mEq/L (3.5-5.2) Chloride Level 102mEq/L (97-108) Carbon Dioxide Level 24mmol/L (18-29) Blood Urea Nitrogen 10mg/dL (8-27) Creatinine 0.42mg/dL (0.57-1.00) Estimat Glomerular Filtration Rate 220mL/min (>59) Glucose Level 105mg/dL (60-99) Calcium Level 8.4mg/dL (8.5-10.1) Microbiology 04/07/17 Urine Culture - Final, Complete No growth (<1,000 organisms/mL) Result Diagram: 04/08/17 0555 04/08/1755 General Appearance: Alert, Oriented X3, Cooperative, No Acute Distress Extremities: Distal Pulses Palpable, No Compartment Syndrom Noted Postop Sensory Motor: Distal Motor Intact, Distal Sensation Intact, NVI Distally SURGICAL WOUND : Wound Location/Description Right lower extremity: Surgical dressing is clean, dry and intact. The postop hinged knee brace is not locked on the medial and lateral stays is sliding. The brace locks on different length on the medial and lateral stays. The brace was readjusted and locked in 0. Incision General Appearance: No Direct Observation Activity: Activity per PT Catheters: Urethral 2 Way [place] Assessment & Plan Impression 1. POD #1 status post right femur ORIF 2. Postoperative anemia, symptomatic Problems: Plan Weightbearing: Nonweightbearing right lower extremity with hinged knee brace locked in full extension x 6 -12 weeks. Use front-wheeled walker. DVT prophylaxis: Lovenox 40 mg subcutaneous 3 weeks followed by aspirin 325 mg twice a day 3 weeks Postoperative anemia - critical value. Blood has been ordered. Patient will be transfused 2 units of packed red blood cells today Physical therapy for transfers, progressive ambulation, therapeutic exercise. PT will be put on hold today until transfusion is completed Wound care: Leave dressing in place until seen in office in 2 weeks Leave Omalley in until tomorrow due to transfusion today We will get the paperwork started for handicap parking placard application from the office and bring it in for tomorrow. Discharge plan: Discharge home vs SNF in 1-2 days when medically stable Follow-up plan: In 2 weeks at [facility] with [facility] for wound check and at [address] Granda with x-rays Pain Management: Dilaudid, Toradol, Percocet, oxycodone, Vistaril VTE Prophylaxis: Sub-Q Enoxaparin, SCDs Resuscitation Status: CPR: Attempt Resuscitation SalamoniaMariajose Ferraro PA-C Apr 08, 2017 08:43
[2017-04-08] MEDS ORDERED: 0.9% Sodium Chloride 250 ML ONE (08:56)
[2017-04-08] MEDS ORDERED: Albuterol-Ipratropium 3 mL Inhalation Solution NEB ONE (09:30)
[2017-04-08] MEDS ORDERED: Albuterol-Ipratropium 3 mL Inhalation Solution NEB PRN (09:30)
--- NOTE | 2017-04-08 09:59 | NUR ---
Blood Admin Started blood administration this AM, 2 units PRBC ordered total. First unit started at 0928. VS taken prior to administration-patient was hypotensive but asymptomatic. VS taken 15 minutes after start of blood infusion- slight increase in BP but patient's is still hypotensive and asymptomatic. Blood checked by 2 RNs prior to start. Started admin within 30 minutes of receiving blood from lab. Patient tolerating infusion well. Continuing to monitor vital signs. Addendum: 04/08/17 at 1202 by KAROLINA CASH RN At end of infusion of 1 unit PRBC, patient's VS are WNL despite her temperature. Will administer banadryl and percocet to hopefully bring down temperature. Will recheck temperature before starting second unit. Addendum: 04/08/17 at 1320 by KAROLINA CASH RN Patient continues to be febrile even after administration of Benadryl and acetaminophen in Percocet. Hospitalist khai. Addendum: 04/08/17 at 1349 by KAROLINA CASH RN Hospitalist pageyoli X2. Order for Tylenol received. Will administer Tylenol and recheck temperature in an hour. Hospitalist states we may have to get ortho involved if fever doesn't break. Addendum: 04/08/17 at 1605 by KAROLINA CASH RN Temperature is now under 100 F. Paged hospitalist about starting second unit of PRBC. Holding off on second unit-waiting for VS to be stabilized. Will pass off to mold shifter.
--- NOTE | 2017-04-08 10:02 | PCM.PNMED ---
Subjective Date of Service Apr 08, 2017 Subjective pt tolerated surgery well, denied sob, cough, laying down comfortably c/o pain from surgical wound 06/08, wants to increase pain meds noted hgb dropped >2 since admission, ordered 2unit of PRBC Exam Vital Signs Vital Sign - Last Date Time Temp Pulse Resp B/P Pulse Ox O2 Delivery O2 Flow Rate FiO2 04/08/17 09:46 36.7 105 18 97/63 04/08/17 07:43 Room Air 04/08/17 05:19 100 2.00 Intake and Output 04/07/17 04/07/17 04/08/17 Cumulative From/Thru 15:00 23:00 07:00 04/06/17 14:01 - 04/08/17 06:37 Intake Total 660 ml 650 ml 1555 ml 3265 ml Output Total 1000 ml 450 ml 550 ml 5000 ml Balance -340 ml 200 ml 1005 ml -1735 ml Intake Oral 600 ml 400 ml 1400 ml IV Total 660 ml 50 ml 1155 ml 1865 ml Output Urine Total 1000 ml 350 ml 550 ml 4900 ml Estimated Blood Loss 100 ml 100 ml # Bowel Movements 0 0 0 Exam NAD, comfortably laying down on the bed no accessory m use, speaks in full sentences no JVD, MMM, no LAD RRR, nl s1, s2 no mrg mild exp wheezing, no crackles, S,ND,NT,normoactive BS+ Rt toes-sensory intact to dull, moving Rt leg in cast IVs and Medications Medications Reviewed: Medications were reviewed in detail Lab and Diagnostics Result Diagram: 04/08/17 0555 04/08/17 0555 X-Rays, CTs and MRIs PROCEDURE: CT KNEE RIGHT W/O CONTRAST (75648) INDICATIONS: distal femur fracture on x-ray TECHNIQUE: Noncontrast 1-1.5 mm axial sections acquired from the mid-patella to the proximal tibia, with coronal and sagittal reformats. COMPARISON: [facility], CT, KNEE RT W/O CONTRAST, 04/18/2013, 13: 13. [facility], CR, XR KNEE 3VW RT, 04/06/2017, 14:18. FINDINGS: Image quality: Excellent. Bones: Comminuted, mildly displaced, distal femur fracture with extension into the medial and lateral condyles. Fracture lucency extends into the intracondylar notch. Tibial plateau appears intact. Soft tissues: Prominent effusion is present with soft tissue edema. IMPRESSION: 1. Communited, mildly displaced distal femur fracture with extension into the condyles and intracondylar notch. 2. Prominent effusion and soft tissue edema. Dictated by: Opal Rodgers M.D. on 04/06/2017 at 15:26 Assessment & Plan 61 -year-old lady with past medical history of COPD, depression/anxiety, recent extensive back surgery for scoliosis on February 08 and February 17 at [facility] presented with fall from bed and right knee pain and swelling of 20 hours. acute, active # Right distal femoral fracture, acute,poa, pt underwent ORIF by on 04/07 , tolerated well. -percocet 5-325 q4h standing, Oxycodone prn for breakthrough pain also dilaudid iv prn -appreciate Orthopedics service follow up -pain control, dvt ppx per surgery team # History of COPD, chronic active smoker, tolerated surgery -SpO2 remained stable but was mildly symptomatic today -duoneb q4h prn, continue singulair, continue nicotine patch daily -encouraged using incentive spirometer #anemia, likely multifactorial: acute blood loss from surgery,baseline chronic anemia, dilutional with IVF, POA, h/h 8.5/27.6 on admission, -hgb dropped to 6.4, after surgery, will give 2units today -trend CBC 3hrs post transfusion. chronic, stable # Recent extensive back surgery for scoliosis -keep spine brace -Pain control as above - to notify orthopedic surgeon in [place],patient needs to reschedule appointment with neurosurgeon on d/c #Anxiety/depression -Continue home medication Full code dispo: depends on surgical course VTE Prophylaxis: Sub-Q Enoxaparin, SCDs VTE Mechanical Devices: Intermittant Pneumatic CD Resuscitation Status: CPR: Attempt Resuscitation Time spent 35min Willy Rolle MD Apr 08, 2017 10:02
[2017-04-08] MEDS: ALPRAZolam 0.5 mg Tablet PO PRN ×2 (10:34→18:37)
--- NOTE | 2017-04-08 10:44 | NUR ---
Pain Patient continues to report pain at a 10/10 on the pain scale in the right leg. Patient talked with hospitalist about scheduled pain management and percocet was ordered scheduled Q4 hours. Patient requested alprazolam, vistaril, and oxycodone. This was given to patient over night without issue and patient tolerated this well despite reporting pain at a 10/10. Vital signs were taken prior to administration of 1030 doses, recorded in blood vitals intervention, and will be checked again. CPO2 in place, oxygen sat 98-100%, patient going between room air and 2 L O2 via nasal canula. Continuing to monitor for pain management requirements.
[2017-04-08] MEDS: oxyCODONE-Acetamin 5-325 mg Tablet PO SCH ×3 (12:12→21:42)
[2017-04-08] MEDS ORDERED: Acetaminophen IV 1,000 MG in IV Premix 1 EACH IV ONE (13:45)
[2017-04-08] MEDS: HYDROmorphone 0.5 mg/0.5 mL iSecure Syringe IVPUSH PRN (14:01)
--- NOTE | 2017-04-08 15:25 | NUR ---
Social work note - Initial Assessment Renetta Logan is a 61 yr old who was admitted for Femur Fracture - EMR reviewed: Pt has [employer] out of [place] insurance, Her PCP is Dr Soto Lemus. No LTC or VA benefits. Pt's is her DPOA - Pt will ask to bring in paperwork. Readmit risk is 3. See attached CM initial assessment. [employer] met with pt - introduced DC planning and explained SW role. Pt lives at home with her . She is a department chairperson - states that she had elective back surgery three months ago and was almost done with her recovery when she fell out of bed and broke her femur. Pt is depressed - states that she can not believe that she will need another 6-8 weeks of recovery. She states that her house is well equipped for her - she has walker, bed side commode and has accessible shower. She may need a wheelchair with extension as well as would like a handicap tag for her car. PT evaluation pending. Pt states she will refuse SNF if recommended for rehab. [employer] provided support, provided DC planning check list and will continue to follow for recommendations for SNF, HH PT. Plan: Likely home with - [employer] will follow for recommendations for rehab. ARMIDA Lozano Addendum: 04/08/17 at 1531 by FUAD LOPEZ SS Amended: Links added.
--- NOTE | 2017-04-08 17:03 | NUR ---
Pain/Mentation During this shift, patient has been forgetful-she is unable to remember when her last pain medication was given. Often saying "I haven't gotten anything in hours for pain. Are you going to give me anything?" after I had been in to give her pain medication 30 minutes prior. Patient continues to state "I'm only getting one percocet?". Educated patient during each medication administration that percocet is a combination of oxycodone and tylenol and she is getting one of these every 4 hours and then also getting 10 mg of percocet every 4 hours along with other medications to help manage her pain. Talked with patient about how she was managing her pain at home after her back surgery and she stated "I take percocet at home and now it's controlled through my primary care doctor." When asked how many she usually takes to help her pain she stated "I take 4.... per day. and if that doesn't help sometimes I take two at a time and that helps my pain.". After patient continued to rate her pain level a 10/10 this shift, I asked her if her pain ever got better and how low her pain level got on the pain scale. She reported that her pain did come down to a 4-5/10 and that she has been able to get some sleep during this shift and if she is able to focus on something else to distract her, her pain is better managed. Continuing to educate patient about the pain medication she is receiving. Hourly rounding in place. CPO2 in place.
[2017-04-08] MEDS: BusPIRone 15 mg Dividose Tablet PO SCH (21:42)
[2017-04-09] VITALS (11 sets, daily range): BP systolic 99–123; BP diastolic 62–72; PULSE 81–102; RESP 14–20; O2SAT 93–100
[2017-04-09] MEDS: ALPRAZolam 0.5 mg Tablet PO PRN ×4 (00:07→16:18)
[2017-04-09] MEDS: Sodium Chloride LOK Flush 10 mL Syringe IV SCH ×3 (00:30→16:10)
--- NOTE | 2017-04-09 02:15 | NUR ---
Pain medication/ Blood administration Patient reports 10/10 pain, however difficult to arouse, Resp 20. Withheld 0000 routine pain medication, as previous dose was delayed (patient sleeping) and given two hours prior. PRN medication given shortly after per patient request. Blood administration yield no adverse side effects. will continue to monitor closely.
[2017-04-09] MEDS: oxyCODONE-Acetamin 5-325 mg Tablet PO SCH ×6 (03:53→20:10)
[2017-04-09] MEDS: hydrOXYzine Pamoate 25 mg Capsule PO PRN ×3 (03:53→20:11)
[2017-04-09 06:39] LABS: BASOPHILS % (AUTO) 0.2 % (0-3); EOSINOPHILS % (AUTO) 1.9 % (0-5); Mean Corpuscular Volume 87.2 fL (81-100); NEUTROPHILS % (AUTO) 75.1 % (40-74); Platelet Count 296 bil/L (150-400)
[2017-04-09 07:01] LABS: Magnesium 1.9 mg/dL (1.6-2.6); Phosphorus 2.9 mg/dL (2.5-4.9)
[2017-04-09] MEDS: 0.9% Sodium Chloride 1,000 ML IV SCH (07:59)
--- NOTE | 2017-04-09 08:07 | PCM.PNORTH ---
Subjective Date of Service: Apr 09, 2017 Visit Information: Reason for Visit Right Distal Femur Fracture Surgery/Surgery Date Post-Op Day # Date of Admission: Apr 06, 2017 at 17:57 Hospital Day # Subjective Patient is status post day #2 right distal femur ORIF. Patient also having symptomatic postoperative anemia, post blood transfusion 2 units. Patient states that she has been having a lot of pain and feels like she is almost being undertreated for pain. Discussed with nursing states that she has seemed a little oversedated. Patient states she is a light sleeper and has only slept 4 hours at a time and is very alert when people come in the room. Postop General: No Shortness of Breath, No Chest Pain Pain Management: PO, IV Push Objective Exam Objective Patient is alert and oriented 3. Answering questions appropriately. Patient is sitting up in the bed and not appearing to be in acute distress today. Dressing is clean dry and intact. Braces in good position, worn appropriately. Calf is soft and nontender. Sensation and pulses intact, patient able to wiggle toes. Vital Signs and I/O Vital Sign - Last Date Time Temp Pulse Resp B/P Pulse Ox O2 Delivery O2 Flow Rate FiO2 04/09/17 04:30 37.2 102 18 123/70 93 Room Air 04/08/17 05:19 2.00 Intake and Output 04/08/17 04/08/17 04/09/17 Cumulative From/Thru 15:00 23:00 07:00 04/06/17 14:01 - 04/09/17 06:01 Intake Total 295 ml 2550 ml 2019 ml 8129 ml Output Total 1000 ml 1100 ml 7100 ml Balance 295 ml 1550 ml 919 ml 1029 ml Intake Oral 1300 ml 920 ml 3620 ml IV Total 1250 ml 799 ml 3914 ml Packed Cells 295 ml 300 ml 595 ml Output Urine Total 1000 ml 1100 ml 7000 ml Estimated Blood Loss 100 ml # Bowel Movements 0 0 Lab & Micro Results Laboratory Tests Test 04/09/17 06:05 White Blood Count 10.8th/mm3 (3.8-10.1) Red Blood Count 2.96mil/mm3 (3.90-5.20) Hemoglobin 8.3g/dL (12.0-15.6) Hematocrit 25.8% (35.0-46.0) Mean Corpuscular Volume 87.2fL (81-100) Mean Corpuscular Hemoglobin 28.0pg (27.0-35.0) Mean Corpuscular Hemoglobin Concent 32.2% (32.0-37.0) Red Cell Distribution Width 14.8% (12.3-15.4) Platelet Count 296bil/L (150-400) Neutrophils (%) (Auto) 75.1% (40-74) Lymphocytes (%) (Auto) 13.6% (14-46) Monocytes (%) (Auto) 9.0% (4-12) Eosinophils (%) (Auto) 1.9% (0-5) Basophils (%) (Auto) 0.2% (0-3) Sodium Level 139mEq/L (134-144) Potassium Level 3.5mEq/L (3.5-5.2) Chloride Level 103mEq/L (97-108) Carbon Dioxide Level 23mmol/L (18-29) Blood Urea Nitrogen 9mg/dL (8-27) Creatinine 0.29mg/dL (0.57-1.00) Estimat Glomerular Filtration Rate 338mL/min (>59) Glucose Level 100mg/dL (60-99) Calcium Level 8.4mg/dL (8.5-10.1) Phosphorus Level 2.9mg/dL (2.5-4.9) Magnesium Level 1.9mg/dL (1.6-2.6) Total Bilirubin 0.4mg/dL (0.0-1.2) Aspartate Amino Transf (AST/SGOT) 14U/L (0-50) Alanine Aminotransferase (ALT/SGPT) 8U/L (0-32) Alkaline Phosphatase 126U/L (25-165) Total Protein 5.6g/dL (6.4-8.4) Albumin 3.0g/dL (3.4-5.0) Microbiology 04/07/17 Urine Culture - Final, Complete No growth (<1,000 organisms/mL) Result Diagram: 04/09/1760404/09/17604 SURGICAL WOUND : Incision General Appearance: No Direct Observation Activity: Activity per PT Catheters: Urethral 2 Way Omalley Assessment & Plan Impression Status post day #2 right distal femur ORIF. Patient also post transfusion from symptomatic postoperative anemia. Discrepancy between oversedation stated by the nurses and under treatment of pain stated by the patient. She seems to be comfortable today. Problems: Plan Weightbearing: Nonweightbearing right lower extremity with hinged knee brace locked in full extension x 6 -12 weeks. Use front-wheeled walker. DVT prophylaxis: Lovenox 40 mg subcutaneous 3 weeks followed by aspirin 325 mg twice a day 3 weeks Postoperative anemia - critical value. Blood has been transfused 2 units of packed red blood cells yesterday. Physical therapy for transfers, progressive ambulation, therapeutic exercise. Wound care: Leave dressing in place until seen in office in 2 weeks Omalley may be removed today. Paperwork for handicap parking is placed in the chart. Discharge plan: Discharge home vs SNF in 1-2 days when medically stable Follow-up plan: In 2 weeks at [facility] with [facility] for wound check and at [address] Granda with x-rays VTE Prophylaxis: Sub-Q Enoxaparin, SCDs Resuscitation Status: CPR: Attempt Resuscitation Manolo Cleveland PA-C Apr 09, 2017 08:07
[2017-04-09] MEDS: Senna-Docusate 8.6-50 mg Tablet PO SCH ×2 (08:15→20:10)
--- NOTE | 2017-04-09 12:24 | PCM.PNMED ---
Subjective Date of Service Apr 09, 2017 Subjective pt had two febrile episode with tranfusion, HD stable, asymptomatic. pt denied rash, chills, any associated sx during transfusion and this AM. pt was still in pain from surgery, requested to increase interval to q3h for Oxycodone. awaits PT eval as per orthopedic service, likely d/c tomorrow denied SOB, using incentive spirometer well, denied cough, sputum, Exam Vital Signs Vital Sign - Last Date Time Temp Pulse Resp B/P Pulse Ox O2 Delivery O2 Flow Rate FiO2 04/09/17 11:10 37.1 90 18 122/72 97 Room Air 04/08/17 05:19 2.00 Intake and Output 04/08/17 04/08/17 04/09/17 Cumulative From/Thru 15:00 23:00 07:00 04/06/17 14:01 - 04/09/17 06:01 Intake Total 295 ml 2550 ml 2019 ml 8129 ml Output Total 1000 ml 1100 ml 7100 ml Balance 295 ml 1550 ml 919 ml 1029 ml Intake Oral 1300 ml 920 ml 3620 ml IV Total 1250 ml 799 ml 3914 ml Packed Cells 295 ml 300 ml 595 ml Output Urine Total 1000 ml 1100 ml 7000 ml Estimated Blood Loss 100 ml # Bowel Movements 0 0 Exam NAD, comfortably laying down on the bed no accessory m use, speaks in full sentences no JVD, MMM, no LAD RRR, nl s1, s2 no mrg mild exp wheezing, no crackles, S,ND,NT,normoactive BS+ Rt toes-sensory intact to dull, moving Rt leg in cast IVs and Medications Medications Reviewed: Medications were reviewed in detail Lab and Diagnostics Result Diagram: 04/09/1760404/09/17604 X-Rays, CTs and MRIs PROCEDURE: CT KNEE RIGHT W/O CONTRAST (69853) INDICATIONS: distal femur fracture on x-ray TECHNIQUE: Noncontrast 1-1.5 mm axial sections acquired from the mid-patella to the proximal tibia, with coronal and sagittal reformats. COMPARISON: [facility], CT, KNEE RT W/O CONTRAST, 04/18/2013, 13: 13. [facility], CR, XR KNEE 3VW RT, 04/06/2017, 14:18. FINDINGS: Image quality: Excellent. Bones: Comminuted, mildly displaced, distal femur fracture with extension into the medial and lateral condyles. Fracture lucency extends into the intracondylar notch. Tibial plateau appears intact. Soft tissues: Prominent effusion is present with soft tissue edema. IMPRESSION: 1. Communited, mildly displaced distal femur fracture with extension into the condyles and intracondylar notch. 2. Prominent effusion and soft tissue edema. Dictated by: Opal Rodgers M.D. on 04/06/2017 at 15:26 Assessment & Plan 61 -year-old lady with past medical history of COPD, depression/anxiety, recent extensive back surgery for scoliosis on February 08 and February 17 at [facility] presented with fall from bed and right knee pain and swelling of 20 hours. acute, active # Right distal femoral fracture, acute,poa, pt underwent ORIF by on 04/07 , tolerated well. -percocet 5-325 q4h standing, Oxycodone prn increase interval from q4h to 3h for breakthrough pain also dilaudid iv prn -appreciate Orthopedics service follow up -pain control, dvt ppx per surgery team # History of COPD, chronic active smoker, tolerated surgery -SpO2, symptoms remained stable -duoneb q4h prn, continue singulair, continue nicotine patch daily -encouraged using incentive spirometer #anemia, likely multifactorial: acute blood loss from surgery,baseline chronic anemia, dilutional with IVF, POA, h/h 8.5/27.6 on admission -hgb dropped to 6.4, after surgery, received 2units pRBC, h/h appropriately elevated. no ongoing bleeding suspected from surgery service -trend CBC daily chronic, stable #acute Febrile nonhemolytic transfusion reactions (FNHTR), developed on 04/08 with transfusion 2units pRBC, pt remained asymptomatic, HD stable, but had isloated fevers, no s/s of infection. resolved. # Recent extensive back surgery for scoliosis -keep spine brace -Pain control as above - to notify orthopedic surgeon in [place],patient needs to reschedule appointment with neurosurgeon on d/c #Anxiety/depression -Continue home medication Full code dispo: depends on surgical course VTE Prophylaxis: Sub-Q Enoxaparin, SCDs VTE Mechanical Devices: Intermittant Pneumatic CD Resuscitation Status: CPR: Attempt Resuscitation Time spent 35min Willy Rolle MD Apr 09, 2017 12:20
--- NOTE | 2017-04-09 15:23 | NUR ---
Inpatient Wound Nurse Patient seen for draining venous ulcer on lateral LLE. Circular wound is observed, 2 cm L x 2.5 cm W x 0.2 cm D, well-adhered edges, wound bed covered in lacy yellow slough, less than 50% granulating tissue noted. Drainage is moderate amount and very odorous. Periwound is pink with mild erythema and tender to light palpation. Wound was cleansed, blotted dry, periwound swabbed with skin prep, then covered with Aquacel Extra Ag cut to fit within wound bed, then covered with bordered Mepilex foam dressing. Patient declined compression wrap but was agreeable to elasticated tubular bandage (tubigrip) which was applied with challenge as patient did not want CWON to assist and insisted on doing independently despite decreased ability to reach BLE due to R fracture. Patient was instructed to follow up with outpatient Wound Center and PCP was alerted that patient was in hospital for fracture with draining venous ulcer. CWON will see patient on Wednesday. Nursing staff may change Mepilex dressing PRN.
--- NOTE | 2017-04-09 16:29 | NUR ---
Pain/Omalley/Activity Reports pain 10/10 at all times, even while chatting with visitors and eating meals. FELDT pain scores 0-3/10. Scheduled and prn medication given. Ongoing education r/t pain scale and pain medication use. Pt insisted that I contact MD about keeping Omalley in for one more day. Orders obtained to leave Omalley in place. Valery-care performed. Bedrest all shift. See physical therapy notes. Attempted q 2 hour turns, but pt declines despite continuing education. No skin breakdown or redness noted on backside or heels at this time.
[2017-04-09] MEDS: BusPIRone 15 mg Dividose Tablet PO SCH (20:10)
[2017-04-10 02:17] VITALS: BP 112/68; PULSE 81; RESP 16; O2SAT 98
[2017-04-10] MEDS: Sodium Chloride LOK Flush 10 mL Syringe IV SCH ×3 (04:48→16:30)
[2017-04-10] MEDS: oxyCODONE-Acetamin 5-325 mg Tablet PO SCH ×6 (04:48→20:00)
[2017-04-10] MEDS: hydrOXYzine Pamoate 25 mg Capsule PO PRN ×4 (04:48→19:18)
--- NOTE | 2017-04-10 05:22 | NUR ---
Pain management Pain management education given. Evening medications and pain med combination given at start of shift. Pt able to sleep through out shift pain decreased from 10/10 at start of shift to 5/10 this am. Care continues.
[2017-04-10] MEDS: ALPRAZolam 0.5 mg Tablet PO PRN ×3 (06:30→19:19)
[2017-04-10 06:43] VITALS: BP 110/67; PULSE 83; RESP 16; O2SAT 97
[2017-04-10 06:46] LABS: BASOPHILS % (AUTO) 0.2 % (0-3); EOSINOPHILS % (AUTO) 3.8 % (0-5); MONOCYTES % (AUTO) 9.1 % (4-12); Mean Corpuscular Volume 86.8 fL (81-100); Platelet Count 365 bil/L (150-400)
[2017-04-10 07:16] LABS: Magnesium 1.9 mg/dL (1.6-2.6)
[2017-04-10 08:46] VITALS: PULSE 84; RESP 16; O2SAT 99
--- NOTE | 2017-04-10 11:22 | PCM.PNORTH ---
Subjective Date of Service: Apr 10, 2017 Visit Information: Reason for Visit Right Distal Femur Fracture Surgery/Surgery Date Post-Op Day # 3 Date of Admission: Apr 06, 2017 at 17:57 Hospital Day # Subjective Patient is complaining of pain today. She states she will not be going to a snf facility because she has help at home - her and a friend who is a retired RN. She has not been able to get out of bed and requires maximum assistance for transfers at this time. She states her and friend can handle moving her around or she can just "lay in bed until I'm healed." Patient states she was told she could remove her brace at night while sleeping but states she does not want to as she "will heal faster with the brace on." She states she tends to sleep on her left side and is worried that this will affect her healing. Postop General: No Shortness of Breath, No Chest Pain Pain Management: PO, IV Push Objective Exam Objective Patient laying in bed with brace on, locked in extension. Vital Signs and I/O Vital Sign - Last Date Time Temp Pulse Resp B/P Pulse Ox O2 Delivery O2 Flow Rate FiO2 04/10/17 08:46 84 16 99 Room Air 04/10/17 06:43 36.9 110/67 04/08/17 05:19 2.00 Intake and Output 04/09/17 04/09/17 04/10/17 Cumulative From/Thru 15:00 23:00 07:00 04/06/17 14:01 - 04/10/17 06:55 Intake Total 372 ml 840 ml 9341 ml Output Total 1700 ml 1200 ml 59771 ml Balance 372 ml -860 ml -1200 ml -659 ml Intake Oral 840 ml 4460 ml IV Total 372 ml 4286 ml Packed Cells 595 ml Output Urine Total 1700 ml 1200 ml 9900 ml Estimated Blood Loss 100 ml # Bowel Movements 0 Lab & Micro Results Laboratory Tests Test 04/10/17 06:19 White Blood Count 9.2th/mm3 (3.8-10.1) Red Blood Count 3.04mil/mm3 (3.90-5.20) Hemoglobin 8.5g/dL (12.0-15.6) Hematocrit 26.4% (35.0-46.0) Mean Corpuscular Volume 86.8fL (81-100) Mean Corpuscular Hemoglobin 28.0pg (27.0-35.0) Mean Corpuscular Hemoglobin Concent 32.2% (32.0-37.0) Red Cell Distribution Width 15.1% (12.3-15.4) Platelet Count 365bil/L (150-400) Neutrophils (%) (Auto) 72.0% (40-74) Lymphocytes (%) (Auto) 14.8% (14-46) Monocytes (%) (Auto) 9.1% (4-12) Eosinophils (%) (Auto) 3.8% (0-5) Basophils (%) (Auto) 0.2% (0-3) Sodium Level 138mEq/L (134-144) Potassium Level 4.1mEq/L (3.5-5.2) Chloride Level 104mEq/L (97-108) Carbon Dioxide Level 23mmol/L (18-29) Blood Urea Nitrogen 10mg/dL (8-27) Creatinine < 0.30mg/dL (0.57-1.00) Estimat Glomerular Filtration Rate 325mL/min (>59) Glucose Level 100mg/dL (60-99) Calcium Level 8.6mg/dL (8.5-10.1) Phosphorus Level 4.0mg/dL (2.5-4.9) Magnesium Level 1.9mg/dL (1.6-2.6) Total Bilirubin 0.3mg/dL (0.0-1.2) Aspartate Amino Transf (AST/SGOT) 17U/L (0-50) Alanine Aminotransferase (ALT/SGPT) 10U/L (0-32) Alkaline Phosphatase 136U/L (25-165) Total Protein 5.6g/dL (6.4-8.4) Albumin 3.0g/dL (3.4-5.0) Procalcitonin 0.07ng/mL (0.00-0.08) Microbiology 04/07/17 Urine Culture - Final, Complete No growth (<1,000 organisms/mL) Result Diagram: 04/10/1761804/10/17618 General Appearance: Alert, Oriented X3, Cooperative, No Acute Distress Extremities: Distal Pulses Palpable, Warm, No Edema, Cyanotic Postop Sensory Motor: Distal Motor Intact, Movement in Toes, Distal Sensation Intact, NVI Distally SURGICAL WOUND : Incision General Appearance: No Direct Observation Activity: Activity per PT Catheters: Urethral 2 Way Omalley Assessment & Plan Impression POD#3 right distal femur ORIF Problems: Plan Weightbearing: Nonweightbearing right lower extremity with hinged knee brace locked in full extension x 6 -12 weeks. Use front-wheeled walker. May remove brace when sleeping but is not required to. DVT prophylaxis: Lovenox 40 mg subcutaneous 3 weeks followed by aspirin 325 mg twice a day 3 weeks Postoperative anemia - continue to monitor Patient has a history of chronic narcotic use and is frequently complaining of poor pain control while in the hospital. Nursing has also observed her becoming overly sedated. It is my recommendation that she be on oral pain medication only , avoid IV/injection. It is my concern that if she is released home with narcotics, she may overly sedate herself due to her high narcotic tolerance. Physical therapy for transfers, progressive ambulation, therapeutic exercise. Wound care: Leave dressing in place until seen in office in 2 weeks Omalley should be removed today to prevent infection. Paperwork for [employer] parking is in the chart. Discharge plan: Discharge home vs SNF in 1-2 days when medically stable. It is my recommendation that patient go to SNF and she has not performed adequately with physical therapy. She has help at home but as thus far needed maximum assistance when getting out of bed and transferring or using commode. She states her and her friend who is a retired nurse will be with her at home to assist her. She is unwilling to consider going to a SNF at this time. Ortho will sign off at this time. Appreciate hospitalist management of patient' s medical needs. Follow-up plan: In [address] [facility] with [facility] for wound check and at [address] Granda with x-rays VTE Prophylaxis: Sub-Q Enoxaparin, SCDs Resuscitation Status: CPR: Attempt Resuscitation Bertha Wilkerson PA-C Apr 10, 2017 11:22
--- NOTE | 2017-04-10 11:45 | PCM.PNMED ---
Subjective Date of Service Apr 10, 2017 Subjective pt still limited on mobility, being afraid of moving, participated PT but refused recommendation continuing PT at SNF orthopedic service cleared her for d/c labs stable, pt feels better than yesterday Exam Vital Signs Vital Sign - Last Date Time Temp Pulse Resp B/P Pulse Ox O2 Delivery O2 Flow Rate FiO2 04/10/17 08:46 84 16 99 Room Air 04/10/17 06:43 36.9 110/67 04/08/17 05:19 2.00 Intake and Output 04/09/17 04/09/17 04/10/17 Cumulative From/Thru 15:00 23:00 07:00 04/06/17 14:01 - 04/10/17 06:55 Intake Total 372 ml 840 ml 9341 ml Output Total 1700 ml 1200 ml 62331 ml Balance 372 ml -860 ml -1200 ml -659 ml Intake Oral 840 ml 4460 ml IV Total 372 ml 4286 ml Packed Cells 595 ml Output Urine Total 1700 ml 1200 ml 9900 ml Estimated Blood Loss 100 ml # Bowel Movements 0 Exam NAD, comfortably laying down on the bed no accessory m use, speaks in full sentences no JVD, MMM, no LAD RRR, nl s1, s2 no mrg mild exp wheezing, no crackles, S,ND,NT,normoactive BS+ Rt toes-sensory intact to dull, moving Rt leg in cast IVs and Medications Medications Reviewed: Medications were reviewed in detail Lab and Diagnostics Result Diagram: 04/10/1761804/10/17618 X-Rays, CTs and MRIs PROCEDURE: CT KNEE RIGHT W/O CONTRAST ([id number]) INDICATIONS: distal femur fracture on x-ray TECHNIQUE: Noncontrast 1-1.5 mm axial sections acquired from the mid-patella to the proximal tibia, with coronal and sagittal reformats. COMPARISON: [facility], CT, KNEE RT W/O CONTRAST, 04/18/2013, 13: 13. [facility], CR, XR KNEE 3VW RT, 04/06/2017, 14:18. FINDINGS: Image quality: Excellent. Bones: Comminuted, mildly displaced, distal femur fracture with extension into the medial and lateral condyles. Fracture lucency extends into the intracondylar notch. Tibial plateau appears intact. Soft tissues: Prominent effusion is present with soft tissue edema. IMPRESSION: 1. Communited, mildly displaced distal femur fracture with extension into the condyles and intracondylar notch. 2. Prominent effusion and soft tissue edema. Dictated by: Opal Rodgers M.D. on 04/06/2017 at 15:26 Assessment & Plan 61 -year-old lady with past medical history of COPD, depression/anxiety, recent extensive back surgery for scoliosis on February 08 and February 17 at [facility] presented with fall from bed and right knee pain and swelling of 20 hours. acute, active # Right distal femoral fracture, acute,poa, pt underwent ORIF by on 04/07 , tolerated well. -pt seems stable on surgical standpoint, however, still requiring frequent opioids for pain control -percocet 5-325 q4h standing, Oxycodone prn increase interval from q4h to 3h for breakthrough pain also dilaudid iv prn -appreciate Orthopedics service, signed off today, recommended outpatient follow up -pain control, dvt ppx per surgery team # History of COPD, chronic active smoker, tolerated surgery -SpO2, symptoms remained stable -duoneb q4h prn, continue singulair, continue nicotine patch daily -encouraged using incentive spirometer #anemia, likely multifactorial: acute blood loss from surgery,baseline chronic anemia, dilutional with IVF, POA, h/h 8.5/27.6 on admission -hgb dropped to 6.4, after surgery, received 2units pRBC, h/h appropriately elevated. no ongoing bleeding suspected from surgery service -trend CBC daily chronic, stable #acute Febrile nonhemolytic transfusion reactions (FNHTR), developed on 04/08 with transfusion 2units pRBC, pt remained asymptomatic, HD stable, but had isloated fevers, no s/s of infection. resolved. # Recent extensive back surgery for scoliosis -keep spine brace -Pain control as above - to notify orthopedic surgeon in [place],patient needs to reschedule appointment with neurosurgeon on d/c #Anxiety/depression -Continue home medication Full code dispo: SNF vs home with HH, PT, d/c likely tomorrow given severely limited mobility, sever pain. VTE Prophylaxis: Sub-Q Enoxaparin, SCDs VTE Mechanical Devices: Intermittant Pneumatic CD Resuscitation Status: CPR: Attempt Resuscitation Time spent 35min Willy Rolle MD Apr 10, 2017 11:45
[2017-04-10 12:53] VITALS: BP 98/60; PULSE 85; RESP 18; O2SAT 99
[2017-04-10] MEDS: Senna-Docusate 8.6-50 mg Tablet PO SCH ×2 (14:50→21:06)
--- NOTE | 2017-04-10 15:10 | NUR ---
NUTRITION ASSESSMENT: ASSESS:61 YO female admitted with right distal femur fracture. This is POD#3 right distal femur ORIF. Patient has a history of chronic narcotic use and is frequently complaining of poor pain control while in the hospital. Nursing has also observed her becoming overly sedated. Her PO has been inconsistent, 25% - 75% trays, which is likely due to somnolence. She is scheduled to discharge tomorrow; she is currently refusing recommended SNF discharge. PMHx:Scoliosis, extensive back surgeries, anxiety, depression. DIET:General. PO intake 25% - 75% trays. LABS: Reviewed. Cr < j0.30, Glu 100, Alb 3.0. MEDICATIONS: Reviewed. NUTRITION FOCUSED PHYSICAL ASSESSMENT: GI symptoms / stool: No stool reported.Stoney: 19. Skin Integrity: Draining venous ulcer on lateral LLE. Circular wound is observed, well-adhered edges, wound bed covered in lacy yellow slough, less than 50% granulating tissue noted. Drainage is moderate amount and very odorous. Periwound is pink with mild erythema and tender to light palpation. ANTHROPOMETRICS: Current Wt: 74.2 kgBMI: 24.0 kg/m2.Admit weight: Pt. has not been reweighed. IBW: 47.8 kg (155.2% IBW) ESTIMATED NEEDS: Calories: 1855 - 2226 kcal (25 - 30 kcal / kg BW) Protein: 74 - 111 g protein (1.0 - 1.5 g / kg BW) NUTRITION DIAGNOSIS: 1)Increased nutrient needs related to increased demand for nutrients, as evidenced by draining venous ulcer LLE. INTERVENTION: 1) Will add Ensure to lunch and dinner trays. MONITOR/EVALUATE: Diet / supplement tolerance, PO intake, labs, GI/nutrition status. Follow up per moderate nutrition risk guidelines.
--- NOTE | 2017-04-10 18:24 | NUR ---
Activity/pain Pt. needing encouragement and coaching when getting up; made an attempt with 2 CNAs to get to bsc, failed. F/C discontinued at 1433, pt. has not voided yet, despite an attempt to be on bed shin x2. Pt. reporting pain to be 10/10 most times, especially with activity. Lowest rate was at a 5/10. PRN roxicodone 10mg x2 has been given as well as scheduled percocet. Immobilizer continues to be on. Pt. doing passive and active ROM in bed, right ext. is warm, good cap refill. Care continues.
[2017-04-10 19:30] VITALS: BP 145/78; PULSE 76; RESP 20; O2SAT 96
[2017-04-10] MEDS: BusPIRone 15 mg Dividose Tablet PO SCH (21:06)
[2017-04-11] MEDS: oxyCODONE-Acetamin 5-325 mg Tablet PO SCH ×6 (00:44→20:57)
[2017-04-11] MEDS: Sodium Chloride LOK Flush 10 mL Syringe IV SCH ×3 (00:45→16:38)
[2017-04-11] MEDS: hydrOXYzine Pamoate 25 mg Capsule PO PRN ×4 (00:45→22:16)
--- NOTE | 2017-04-11 03:43 | NUR ---
Activity Patient able to void spontaneously, however having difficulty getting on and off of BSC. Used bedpan this shift, unable to have a bowel movement in bedpan. Pain medication effective at this time. Patient experiencing mild anxiety, this RN and NAC spent time allowing patient to talk through her anxiety. This seemed to help as she is now sleeping soundly.
[2017-04-11] MEDS: ALPRAZolam 0.5 mg Tablet PO PRN ×3 (06:06→15:35)
[2017-04-11 06:09] VITALS: BP 95/56; PULSE 76; RESP 20; O2SAT 98
[2017-04-11] MEDS: Polyethylene Glycol (PEG) 17 Gm Powder PO SCH ×2 (08:30→20:30)
[2017-04-11] MEDS: Senna-Docusate 8.6-50 mg Tablet PO SCH ×2 (08:30→20:30)
[2017-04-11 08:35] VITALS: BP 94/61; PULSE 103; O2SAT 99
[2017-04-11] MEDS ORDERED: ENOX40DI8 SUBQ (09:06)
[2017-04-11] MEDS ORDERED: NICO1PAT5 TOPICAL (09:06)
--- NOTE | 2017-04-11 11:20 | PCM.DIMED ---
Discharge Instructions Date of Service Apr 11, 2017 Dates of Hospitalization Apr 06, 2017 at 17:57 Discharge Diagnosis Discharge Diagnosis acute dx Right distal femoral fracture due to mechanical fall, s/p ORIF by on 04/07, acute Febrile nonhemolytic transfusion reactions (FNHTR) acute blood loss anemia chronic dx anemia, likely multifactorial: History of COPD, chronic active smoker chronic back pain with recent extensive back surgery for scoliosis Anxiety/depression Medication Instructions Additional med instructions Inject with Lovenox(heparin) to prevent blood clots daily for 3weeks Patient Instructions Patient Instructions You were hospitalized with fracture of your right leg, you underwent surgery well. You were also found to have blood loss likely from surgery, transfused with blood and developed mild adverse reaction to transfusion reaction. Since you are refusing discharge to SNF, Home PT was arranged upon d/c. Please follow further instruction from Orthopedics as as below Weightbearing: Nonweightbearing right lower extremity with hinged knee brace locked in full extension x 6 -12 weeks. Use front-wheeled walker. May remove brace when sleeping but is not required to. DVT prophylaxis: Lovenox 40 mg subcutaneous 3 weeks followed by aspirin 325 mg twice a day 3 weeks Physical therapy for transfers, progressive ambulation, therapeutic exercise. Wound care: Leave dressing in place until seen in office in 2 weeks Follow-up plan: In 2 weeks at [facility] with PA for wound check and at [address] Granda with x-rays Follow-up Provider: Jose Granda DO Follow-up with PCP in: 2 weeks CHF Clinic: 6 weeks Willy Rolle MD Apr 11, 2017 11:20
[2017-04-11 17:58] VITALS: BP 102/61; PULSE 101; RESP 18; O2SAT 98
[2017-04-11 20:05] VITALS: BP 98/61; PULSE 96; RESP 18; O2SAT 95
[2017-04-11] MEDS: BusPIRone 15 mg Dividose Tablet PO SCH (20:58)
--- NOTE | 2017-04-12 00:16 | PCM.PNMED ---
Subjective Date of Service Apr 11, 2017 Subjective pt still required significant amount of dilaudid, needed max assistance, refused SNF placement, overall pt is getting stronger, BP running low 80-90s, asymptomatic Exam Vital Signs Vital Sign - Last Date Time Temp Pulse Resp B/P Pulse Ox O2 Delivery O2 Flow Rate FiO2 04/11/17 20:05 36.9 96 18 98/61 95 Room Air 04/08/17 05:19 2.00 Intake and Output 04/11/17 04/11/17 04/12/17 Cumulative From/Thru 15:00 23:00 07:00 04/06/17 14:01 - 04/11/17 18:49 Intake Total 1020 ml 12250 ml Output Total 750 ml 28600 ml Balance 270 ml -977 ml Intake Oral 1020 ml 6880 ml IV Total 4286 ml Packed Cells 595 ml Output Urine Total 750 ml 44097 ml Estimated Blood Loss 100 ml # Bowel Movements 2 2 Exam NAD, comfortably laying down on the bed no accessory m use, speaks in full sentences no JVD, MMM, no LAD RRR, nl s1, s2 no mrg mild exp wheezing, no crackles, S,ND,NT,normoactive BS+ Rt toes-sensory intact to dull, moving Rt leg in cast IVs and Medications Medications Reviewed: Medications were reviewed in detail Lab and Diagnostics Result Diagram: 04/10/1761804/10/17618 X-Rays, CTs and MRIs PROCEDURE: CT KNEE RIGHT W/O CONTRAST ([id number]) INDICATIONS: distal femur fracture on x-ray TECHNIQUE: Noncontrast 1-1.5 mm axial sections acquired from the mid-patella to the proximal tibia, with coronal and sagittal reformats. COMPARISON: [facility], CT, KNEE RT W/O CONTRAST, 04/18/2013, 13: 13. [facility], CR, XR KNEE 3VW RT, 04/06/2017, 14:18. FINDINGS: Image quality: Excellent. Bones: Comminuted, mildly displaced, distal femur fracture with extension into the medial and lateral condyles. Fracture lucency extends into the intracondylar notch. Tibial plateau appears intact. Soft tissues: Prominent effusion is present with soft tissue edema. IMPRESSION: 1. Communited, mildly displaced distal femur fracture with extension into the condyles and intracondylar notch. 2. Prominent effusion and soft tissue edema. Dictated by: Opal Rodgers M.D. on 04/06/2017 at 15:26 Assessment & Plan 61 -year-old lady with past medical history of COPD, depression/anxiety, recent extensive back surgery for scoliosis on February 08 and February 17 at [facility] presented with fall from bed and right knee pain and swelling of 20 hours. acute, active # Right distal femoral fracture, acute,poa, pt underwent ORIF by on 04/07 , tolerated well. -pt seems stable on surgical standpoint, however, still requiring frequent opioids for pain control -percocet 5-325 q4h standing, Oxycodone prn increase interval from q4h to 3h for breakthrough pain also dilaudid iv prn -appreciate Orthopedics service, signed off today, recommended outpatient follow up -pain control, dvt ppx per surgery team # History of COPD, chronic active smoker, tolerated surgery -SpO2, symptoms remained stable -duoneb q4h prn, continue singulair, continue nicotine patch daily -encouraged using incentive spirometer #anemia, likely multifactorial: acute blood loss from surgery,baseline chronic anemia, dilutional with IVF, POA, h/h 8.5/27.6 on admission -hgb dropped to 6.4, after surgery, received 2units pRBC, h/h appropriately elevated. no ongoing bleeding suspected from surgery service -trend CBC daily chronic, stable #acute Febrile nonhemolytic transfusion reactions (FNHTR), developed on 04/08 with transfusion 2units pRBC, pt remained asymptomatic, HD stable, but had isloated fevers, no s/s of infection. resolved. # Recent extensive back surgery for scoliosis -keep spine brace -Pain control as above - to notify orthopedic surgeon in [place],patient needs to reschedule appointment with neurosurgeon on d/c #Anxiety/depression -Continue home medication Full code dispo: pt refused SNF, d/c home with HH, PT likely tomorrow given severely limited mobility, sever pain. VTE Prophylaxis: Sub-Q Enoxaparin, SCDs VTE Mechanical Devices: Intermittant Pneumatic CD Resuscitation Status: CPR: Attempt Resuscitation Time spent 35min Willy Rolle MD Apr 12, 2017 00:16
[2017-04-12] MEDS: oxyCODONE-Acetamin 5-325 mg Tablet PO SCH ×4 (00:47→12:11)
[2017-04-12] MEDS: Sodium Chloride LOK Flush 10 mL Syringe IV SCH ×2 (00:47→07:54)
[2017-04-12] MEDS: hydrOXYzine Pamoate 25 mg Capsule PO PRN ×3 (04:56→15:09)
--- NOTE | 2017-04-12 05:00 | NUR ---
Mobility / pain Pt has been unwilling to get out of bed all night; has not voided but denies discomfort. Will asssit to BSC in early am if willing. Pain in leg intensifies dramatically with movement; well managed while relatively still with scheduled Percocet and prn Vistaril and Toradol. Able to make all needs known. Hourly rounding ongoing.
[2017-04-12 06:38] VITALS: BP 110/67; PULSE 82; RESP 18; O2SAT 98
[2017-04-12] MEDS ORDERED: OXYC-466 PO (07:50)
[2017-04-12] MEDS: Polyethylene Glycol (PEG) 17 Gm Powder PO SCH (07:54)
[2017-04-12] MEDS: Senna-Docusate 8.6-50 mg Tablet PO SCH (07:55)
[2017-04-12] MEDS: ALPRAZolam 0.5 mg Tablet PO PRN ×2 (08:04→12:58)
--- NOTE | 2017-04-12 09:02 | NUR ---
DME REQUEST : Called and spoke with Alonso at [facility] [phone] and made sure that they were in network with patient's insurance. Sent fax with chart documentation and prescription for wheelchair with diagnosis, height, weight and expected length of time needed. Patient is planning to discharge today and this will need to be delivered to her home. Updated GEOSPATIAL ANALYST
--- NOTE | 2017-04-12 11:10 | NUR ---
Social Work: Readiness for Discharge/Multidisciplinary Rounds D: EMR reviewed. Pt is on day 6 of hospitalization. Pt discussed in multidisciplinary rounds and is medically stable for discharge today. KIMMY received MD order to coordinate HH PT 3x/week. KIMMY provided choice list - SW explained that pt's HH agency must be contracted with pt's insurance. Pt stated she didn't care what agency as long as her insurance covers services. KIMMY requested Community Placement Worker to call [facility] HH agencies to determine who is contracted with pt's insurance. Community Placement Worker sent rx for DME (wheelchair with leg extension) to [facility] for review. Community Placement Worker to update SW after rx has been reviewed. KIMMY discussed transport with pt. Pt willing to pay privately for wheelchair van to assist her home - pt willing to have wheelchair delivered to her home if wheelchair van will provide transport. SW to call transportation agencies once DME is reviewed by [facility]. Pt agreeable to plan. A: Pt for whom HH is medically necessary. P: Pt to discharge via wheelchair van. Pt's discharge pending authorization for DME from [facility]. KIMMY requested Community Placement Worker to determine which HH agencies are contracted with pt's insurance in [facility]. Pt to discharge today pending DME, HH, and wheelchair van transport costs - SW to update pt once these items have been determined. KIMMY updated RN on progress. JOVITA Arteaga Addendum: 04/12/17 at 1235 by LISA MEJÍA SS KIMMY placed T/C to Navin at [facility] who confirmed they are contracted with pt's insurance. KIMMY explained that pt is max assist, declining SNF, and will need to open with services as soon as possible. Navin will review earliest possible time for opening and call KIMMY back with information. DME UPDATE - [facility] KIMMY called Alonso at [facility] and asked it DME could be delivered to hospital by 1400. Alonso stated he will look into insurance benefits and private pay (renting) costs. Alonso agreeable and stated a tech might be able to deliver equipment today. Alonso will call KIMMY back by 1300 with answers.
--- NOTE | 2017-04-12 12:24 | NUR ---
Inpatient Wound Nurse Patient stated that LLE dressing had just been changed and did not need new dressing. Patient stated that she would continue to wear Tubigrip sleeve, was not agreeable to wrap compression. She is aware that she should be seen in follow up at [facility], stated that she would go once fracture is healed. Patient was provided with multiple Mepilex dressings so that she may change them PRN at home.
--- NOTE | 2017-04-12 12:26 | NUR ---
DME UPDATE - [facility] KIMMY called Alonso at [facility] and asked it DME could be delivered to hospital by 1400. Alonso stated he will look into insurance benefits and private pay (renting) costs. Alonso agreeable and stated a tech might be able to deliver equipment today. Alonso will call KIMMY back by 1300 with answers.
[2017-04-12 12:31] VITALS: BP 99/65; PULSE 84; RESP 19; O2SAT 99
--- NOTE | 2017-04-12 12:35 | NUR ---
[place] REFERRAL SW placed T/C to Navin at [facility] who confirmed they are contracted with pt's insurance. KIMMY explained that pt is max assist, declining SNF, and will need to open with services as soon as possible. Navin will review earliest possible time for opening and call SW back with information. JOVITA Arteaga
--- NOTE | 2017-04-12 13:03 | NUR ---
DME UPDATE Alonso from [facility] confirmed a tech will deliver wheelchair with leg extension to hospital by 1340. Pt does not need a pre-authorization for wheelchair rental - rental is good for 4 months - [place] will need debit card on file in case equipment is not returned after rental period - SW updated pt and pt agreeable. SW waiting [facility] to determine if they can open with pt today or tomorrow. JOVITA Arteaga Addendum: 04/12/17 at 1421 by LSIA MEJÍA SS Wheelchair with leg extension delivered at 1421.
--- NOTE | 2017-04-12 14:21 | NUR ---
Social Work: Discharge D: EMR reviewed. Pt is on day 6 of hospitalization. KIMMY confirmed that [employer] delivered wheelchair with leg extension at 1421 to pt's room. KIMMY discussed HH with pt. Pt states she has a private RN who will be caring for her and does not want PT until her follow-up appointment in 2 weeks. Pt declined HH services. Pt states her spouse and RN are home waiting for her. Pt states her [address] sq[address] house is ADA accessible, she has a bed ready for her, and her /RN are there waiting for her to arrive. Pt states her spouse took off a month of work to care for her 22/03. Pt continues to decline SNF and HH stating she has what she needs. Pt was delivered a wheelchair and KIMMY confirmed with Alonso from [employer] that wheelchair rental does not need pre-auth from insurance and will be provided for 4-months at no cost - pt provided debit card for deposit (required by [employer] in the event DME is damaged or not returned). KIMMY discussed this with pt and pt agreeable. Pt confirmed her spouse retrieved her rx, bedside commode, and elevated toilet seat. Pt declines any further discharge needs and requests transport home. Pt thankful for services provided here at [facility] by all disciplines. T/C to Marlee at [employer] [facility] to set up transportation home. KIMMY provided pt's address and informed Marlee that pt will transport with her own wheelchair. Private pay cost is $55. Transport scheduled for 1530. RN/UA/pt notified and agreeable. No other discharge planning needs at this time. A: Pt who is independent at baseline. Pt who declines HH and SNF - states she has private RN at home and spouse took off a month of work to care for her 22/03. P: Pt to transport home with personal wheelchair delivered by [employer] at [facility]. [employer] will transport pt at 1530 - private pay cost of $55. Pt/RN/UA notified. All agreeable to transport time and discharge plan. JOVITA Arteaga
--- NOTE | 2017-04-12 15:39 | PCM.DC.MED ---
Discharge Summary Date of Service Apr 12, 2017 Dates of Hospitalization Date of Hospital Admission Apr 06, 2017 at 17:57 Date of Discharge: Apr 12, 2017 Providers: Admitting Physician: Bob Castanon MD Primary Care Physician: Soto Lemus DO Attending Physician: Willy Fuentes MD Diagnosis at Time of Discharge Diagnosis at Time of Discharge acute dx Right distal femoral fracture due to mechanical fall, s/p ORIF by on 04/07, acute Febrile nonhemolytic transfusion reactions (FNHTR) acute blood loss anemia chronic dx anemia, likely multifactorial: History of COPD, chronic active smoker chronic back pain with recent extensive back surgery for scoliosis Anxiety/depression Procedures XRay, CTs & MRIs PROCEDURE: CT KNEE RIGHT W/O CONTRAST (61304) INDICATIONS: distal femur fracture on x-ray TECHNIQUE: Noncontrast 1-1.5 mm axial sections acquired from the mid-patella to the proximal tibia, with coronal and sagittal reformats. COMPARISON: [facility], CT, KNEE RT W/O CONTRAST, 04/18/2013, 13: 13. [facility], CR, XR KNEE 3VW RT, 04/06/2017, 14:18. FINDINGS: Image quality: Excellent. Bones: Comminuted, mildly displaced, distal femur fracture with extension into the medial and lateral condyles. Fracture lucency extends into the intracondylar notch. Tibial plateau appears intact. Soft tissues: Prominent effusion is present with soft tissue edema. IMPRESSION: 1. Communited, mildly displaced distal femur fracture with extension into the condyles and intracondylar notch. 2. Prominent effusion and soft tissue edema. Dictated by: Opal Rodgers M.D. on 04/06/2017 at 15:26 Brief History HPI was obtained by 04/06 by 61 -year-old lady with past medical history of COPD, depression/anxiety, recent extensive back surgery for scoliosis on February 08 and February 17 at [facility] presented with fall from bed and right knee pain and swelling of 20 hours. She she states she woke up to go to bathroom and fell from bed. She describes fall as mechanical due to combination of spine brace she is wearing after surgery, new Tempur-Pedic bed and new slippery bed sheets. She landed on her right knee. She has significant swelling and pain on right knee. No trauma to other sites except mild bruise right wrist She has history of COPD. She used to be on Advair but few years she had PFT and was told that she has only mild COPD and dyspnea is mainly due to postmenopausal anxiety and stopped using Advair. Continues to use Singulair. No recent exacerbation Denies chest pain. Denies dyspnea. Denies fever ED course: CT knee showed Communited, mildly displaced distal femur fracture with extension into the condyles and intracondylar notch Dr Granda from orthopedics consulted by ED, plans to take her to OR tomorrow Hospital Course 61 -year-old lady with past medical history of COPD, depression/anxiety, recent extensive back surgery for scoliosis on February 08 and February 17 at [facility] presented with fall from bed and right knee pain and swelling of 20 hours. acute dx # Right distal femoral fracture from mechanical fall. pt underwent ORIF by on 04/07, tolerated well. pt frequently required Oxycodone and Percocet for chronic back pain and surgical site pain. Eventually pain was better controlled and pt was mobilized herself better. Although pt was recommended to d /c to SNF, adamantly refused stating that she has good support and supplies at home, deemed safe for d/c to home. Fall precaution was strongly encouraged multiple times. Plan is to follow up with office in 2weeks. #anemia, likely multifactorial: acute blood loss from surgery, baseline chronic anemia, dilutional with IVF, POA, h/h 8.5/27.6 on admission. Hgb dropped to 6.4 after surgery, received 2units pRBC, h/h appropriately elevated. no ongoing bleeding suspected from surgery service #Acute Febrile nonhemolytic transfusion reactions (FNHTR), developed on 04/08 with transfusion 2units pRBC, pt remained asymptomatic, HD stable, but had isloated fevers, no s/s of infection. resolved. chronic dx # History of COPD, chronic active smoker, tolerated surgery, stable, rarely required nebs tx. # Recent extensive back surgery for scoliosis, keep spine brace, Pain control as above. #Anxiety/depression Exam Vital Signs (Last) Date Time Temp Pulse Resp B/P Pulse Ox O2 Delivery O2 Flow Rate FiO2 04/12/17 12:31 37.0 84 19 99/65 99 Room Air 04/08/17 05:19 2.00 Exam pt was examined on the day of d/c Test 04/06/17 19:28 04/07/17 03:25 04/10/17 06:19 Prothrombin Time 9.6sec (8.1-12.5) Prothromb Time International Ratio 0.90ratio Hold [place] Top Tube Received (Received) Urine Color Yellow (YELLOW) Urine Appearance Clear (CLEAR,HAZY) Urine pH 6.0 (5.0-8.0) Urine Specific [place] 1.025 (1.003-1.035) Urine Protein Negativemg/dL (NEG,TRACE) Urine Glucose (UA) Negativemg/dL (NEGATIVE) Urine Ketones Negativemg/dL (NEGATIVE) Urine Occult Blood Small (NEGATIVE) Urine Nitrite Negative (NEGATIVE) Urine Bilirubin Negative (NEGATIVE) Urine Urobilinogen Normalmg/dL (NORMAL) Urine Leukocyte Esterase Negative (NEGATIVE) Urine RBC 0-2/hpf (0-2) Urine WBC 6-10/hpf (0-5) Urine Epithelial Cells Occasional/hpf (NONE-MOD) Urine Crystals None seen (NONE SEEN) Urine Bacteria Few/hpf (NONE-FEW) Urine Hyaline Casts None/lpf (NONE) Urine Granular Casts None seen (NONE SEEN) Urine Waxy Casts None seen (NONE SEEN) Urine Red Blood Cell Casts None seen (NONE SEEN) Urine White Blood Cell Casts None seen (NONE SEEN) Urine Mucus None seen (None Seen) Urine Trichomonas None seen (NONE SEEN) Urine Yeast None (NONE SEEN) Urinalysis Comment None Urine Culture Reflexed Indicated White Blood Count 9.2th/mm3 (3.8-10.1) Red Blood Count 3.04mil/mm3 (3.90-5.20) Hemoglobin 8.5g/dL (12.0-15.6) Hematocrit 26.4% (35.0-46.0) Mean Corpuscular Volume 86.8fL (81-100) Mean Corpuscular Hemoglobin 28.0pg (27.0-35.0) Mean Corpuscular Hemoglobin Concent 32.2% (32.0-37.0) Red Cell Distribution Width 15.1% (12.3-15.4) Platelet Count 365bil/L (150-400) Neutrophils (%) (Auto) 72.0% (40-74) Lymphocytes (%) (Auto) 14.8% (14-46) Monocytes (%) (Auto) 9.1% (4-12) Eosinophils (%) (Auto) 3.8% (0-5) Basophils (%) (Auto) 0.2% (0-3) Sodium Level 138mEq/L (134-144) Potassium Level 4.1mEq/L (3.5-5.2) Chloride Level 104mEq/L (97-108) Carbon Dioxide Level 23mmol/L (18-29) Blood Urea Nitrogen 10mg/dL (8-27) Creatinine < 0.30mg/dL (0.57-1.00) Estimat Glomerular Filtration Rate 325mL/min (>59) Glucose Level 100mg/dL (60-99) Calcium Level 8.6mg/dL (8.5-10.1) Phosphorus Level 4.0mg/dL (2.5-4.9) Magnesium Level 1.9mg/dL (1.6-2.6) Total Bilirubin 0.3mg/dL (0.0-1.2) Aspartate Amino Transf (AST/SGOT) 17U/L (0-50) Alanine Aminotransferase (ALT/SGPT) 10U/L (0-32) Alkaline Phosphatase 136U/L (25-165) Total Protein 5.6g/dL (6.4-8.4) Albumin 3.0g/dL (3.4-5.0) Procalcitonin 0.07ng/mL (0.00-0.08) Discharge Medications Discharge Medications Amitriptyline (Amitriptyline) 50 Mg Tab 150 MG PO HS (Reported) Buspirone (Buspirone) 10 Mg Tablet 10 MG PO HS (Reported) Enoxaparin Sodium (Enoxaparin Sodium) 40 Mg/0.4 Ml Syringe 40 MG SUBQ Q24 Prescribed by: WILLY FUENTES MD Montelukast (Montelukast) 10 Mg Tablet 10 MG PO HS (Reported) Nicotine 14 mg/24 hr Patch (Nicotine 14 mg/24 hr Patch) 1 Each Patch.td24 1 PATCH TOPICAL DAILY Prescribed by: WILLY FUENTES MD As needed Alprazolam (Alprazolam) 0.5 Mg Tablet 1 MG PO QID PRN PRN For Anxiety (Reported ) Baclofen (Baclofen) 10 Mg Tablet 10 MG PO TID PRN PRN For Pain (Reported) Furosemide (Furosemide) 20 Mg Tab 20 MG PO DAILY PRN PRN prn (Reported) oxyCODONE-Acetaminophen 10-325 mg (oxyCODONE-Acetaminophen 10-325 mg) 1 Each Tablet 1 TAB PO q4 hours PRN PRN For Pain Prescribed by: WILLY FUENTES MD Additional med instructions Inject with Lovenox(heparin) to prevent blood clots daily for 3weeks Followup Plan Disposition: home with PT/OT Patient Instructions You were hospitalized with fracture of your right leg, you underwent surgery well. You were also found to have blood loss likely from surgery, transfused with blood and developed mild adverse reaction to transfusion reaction. Since you are refusing discharge to SNF, Home PT was arranged upon d/c. Please follow further instruction from Orthopedics as as below Weightbearing: Nonweightbearing right lower extremity with hinged knee brace locked in full extension x 6 -12 weeks. Use front-wheeled walker. May remove brace when sleeping but is not required to. DVT prophylaxis: Lovenox 40 mg subcutaneous 3 weeks followed by aspirin 325 mg twice a day 3 weeks Physical therapy for transfers, progressive ambulation, therapeutic exercise. Wound care: Leave dressing in place until seen in office in 2 weeks Follow-up plan: In 2 weeks at [facility] with PA for wound check and at [address] Granda with x-rays Follow-up Provider: Jose Granda DO Follow-up with PCP in: 2 weeks CHF Clinic: 6 weeks Time spent 65min Willy Fuentes MD Apr 12, 2017 15:39
--- NOTE | 2017-04-12 15:56 | NUR ---
Discharge To home via cabulance at 15:45. IV discontinued intact. Pt expresses understanding of all discharge instructions and carenotes, including followup and medications. Rx sent with . All questions answered to pt satisfaction. All belongings sent with pt.
--- NOTE | 2017-04-19 11:41 | NUR ---
Social Work- After Visit Phone Call SW received t/c from patient requesting contact information of [employer] [facility]. Contact information provided. No additional needs. Monika Alaniz MSW
== END 2017-04-12 15:50 | disposition home or self-care (01) | DRG 481 ==
LOC: SED 13:52 → OSC 17:57
PROVIDERS: ADMIT Internal Medicine; ATTEND Internal Medicine
PROC: 0QSB04Z Reposition Right Lower Femur with Internal Fixation Device, Open Approach (ICD-10-PCS; principal; 2017-04-07 13:00)
PROC: 30233N1 Transfusion of Nonautologous Red Blood Cells into Peripheral Vein, Percutaneous Approach (ICD-10-PCS; 2017-04-08)
PROC: 30233N1 Transfusion of Nonautologous Red Blood Cells into Peripheral Vein, Percutaneous Approach (ICD-10-PCS; 2017-04-09)
DX: S72.431A Displaced fracture of medial condyle of right femur, initial encounter for closed fracture (principal); D62 Acute posthemorrhagic anemia; W06.XXXA Fall from bed, initial encounter; Y93.89 Activity, other specified; Y92.003 Bedroom of unspecified non-institutional (private) residence as the place of occurrence of the external cause; J44.9 Chronic obstructive pulmonary disease, unspecified; Z98.890 Other specified postprocedural states; F41.9 Anxiety disorder, unspecified; F32.9 Major depressive disorder, single episode, unspecified; M81.0 Age-related osteoporosis without current pathological fracture; F17.210 Nicotine dependence, cigarettes, uncomplicated